=== PATIENT | female | born 1950 | race Caucasian/White ===

== ENCOUNTER 2017-12-13 20:17 | Observation (INO) | payer MEDICARE ==
[~2017-12-13] VITALS: Ht 157.5 cm; Wt 83.6 kg
[2017-12-13 11:23] VITALS: BP 123/62
--- OUTSIDE RECORDS SUMMARY | 2017-12-13 20:20 | XMS REPORT | Clinical Summary ---
Author Author [facility] Address Unknown Phone Unavailable Care Team Providers Care Property Claims Manager Name Role Phone Fozia Ramos MD PCP Allergies Active Allergy Reactions Severity Noted Date Comments Carbamazepine Other (See Comments) 09/24/2016 Codeine Other (See Comments) 09/23/2016 HALLUCINATIONS Erythromycin Hives 09/23/2016 Iodine Anaphylaxis High 09/24/2016 Sulfa (Sulfonamide Hives 09/23/2016 Antibiotics) Current Medications Prescription Sig. Disp. Refills Start End Date Status Date atorvastatin (LIPITOR) 40 Take 40 mg by mouth Active MG tablet nightly. albuterol sulfate Take 2.5 mg by Active (PROVENTIL) 2.5 mg/0.5 mL nebulization 3 (three) solution for nebulization times a day as needed. dexlansoprazole Take 60 mg by mouth Active (DEXILANT) 60 mg capsule daily. dicyclomine (BENTYL) 10 Take 10 mg by mouth 4 Active MG capsule (four) times a day before meals and nightly. escitalopram (LEXAPRO) 20 Take 20 mg by mouth Active MG tablet daily. fluticasone (FLOVENT HFA) Inhale 1 puff 2 (two) Active 110 mcg/actuation inhaler times a day as needed. insulin lispro (HumaLOG) Inject 20 Units under the Active 100 unit/mL injection skin 3 (three) times a day before meals. HYDROcodone-acetaminophen Take 1 tablet by mouth Active (NORCO) 10-325 mg per every 6 (six) hours as tablet needed for moderate pain. loratadine (CLARITIN) 10 Take 10 mg by mouth Active mg tablet daily. montelukast (SINGULAIR) Take 10 mg by mouth Active 10 mg tablet daily. traZODone (DESYREL) 100 Take 100 mg by mouth Active MG tablet nightly. Active Problems Problem Noted Date Fracture of right orbit 09/26/2016 Hx of CABG 09/26/2016 IDDM (insulin dependent diabetes mellitus) 09/26/2016 HTN (hypertension) 09/26/2016 Fall 09/24/2016 Social History Tobacco Use Types Packs/Day Years Used Date Never Smoker Alcohol Use Drinks/Week oz/Week Comments No Sex Assigned at Date Recorded Not on file Last Filed Vital Signs Not on file Plan of Treatment Health Maintenance Due Date Last Done Comments DIABETIC FOOT EXAM 1962 DIABETIC RETINAL EYE EXAM 1962 URINE MICROALBUMIN 1962 CERVICAL CANCER SCREENING 1973 BREAST CANCER SCREENING 2002 COLON CANCER SCREENING 2002 SHINGRIX VACCINE (#1) 2002 ZOSTER VACCINE 2012 PNEUMOCOCCAL 2017 POLYSACCHARIDE VACCINE AGE 65 AND OVER PNEUMOCOCCAL-13 2017 INFLUENZA VACCINE 02/10/2018 Results Not on fileafter 12/12/2016 Insurance Payer Benefit Subscriber ID Type Phone Address Plan / Group [employer] CIGNA xxxxxxxx [facility] [address] [place] [place] [address]
[2017-12-13 23:04] LABS: BASOPHILS % 0.3 % (0.0-1.0); EOSINOPHILS # (AUTO) 0.1 (0.0-0.4); EOSINOPHILS % 1.7 % (0.0-6.0); HEMATOCRIT 32.3 % (34.2-44.1); HEMOGLOBIN 10.5 g/dL (12.0-16.0); LYMPHOCYTES # (AUTO) 2.4 (1.0-3.2); LYMPHOCYTES % 30.1 % (18.0-39.1); MEAN CORPUSCULAR HGB CONC 32.5 g/dL (31-35); MEAN CORPUSCULAR VOLUME 98.5 fL (81-99); MONOCYTES % 12.6 % (4.4-11.3); NEUTROPHILS # (AUTO) 4.3 (2.1-6.9); NEUTROPHILS % 54.9 % (38.7-80.0); PLATELET COUNT 261 x10e3/uL (140-360); RED BLOOD COUNT 3.28 x10e6/uL (3.6-5.1); RED CELL DISTRIBUTION WIDTH 12.2 % (11.7-14.4)
[2017-12-13 23:16] LABS: INR 1.09; PARTIAL THROMBOPLASTIN TIME 28.8 seconds (23.8-35.5); PROTHROMBIN TIME 13.3 seconds (11.9-14.5)
--- NOTE | 2017-12-13 23:21 | Diagnostic Imaging Report ---
Examination: CT head without contrast Clinical Indication: Fall. Technique: Transaxial noncontrast images from the skull base through the vertex were obtained. Sagittal and coronal reformatted images were done. Comparison: None. Findings: Scalp: No abnormalities. Bones: Intact. No fractures. No blastic or lytic lesions. Brain sulci: Mild volume loss for patient's age. Ventricles: No hydrocephalus. Extra-axial space: No abnormalities. Parenchyma: There are mild confluent areas of low-attenuation within subcortical and periventricular white matter, nonspecific, but could represent microvascular ischemic disease. No masses, hemorrhage, or acute or chronic cortical based vascular insults. Suprasellar region: No abnormalities. Craniocervical junction: The foramen magnum is patent. No Chiari one malformation. Incidental findings: Complete opacification of the bilateral sphenoid and frontal sinuses and ethmoid air cells and partially visualized maxillary sinuses with adjacent osteitis Impression: 1. No acute intracranial finding. 2. Chronic pansinusitis. 3. Mild chronic microvascular ischemic change and mild volume loss. Signed by: Dr. Kelley Celeste M.D. on 12/13/2017 11:18 PM
--- NOTE | 2017-12-13 23:23 | Diagnostic Imaging Report ---
Examination: CT CERVICAL SPINE WITHOUT CONTRAST HISTORY:Fall. Neck pain. COMPARISON:None. TECHNIQUE: Multidetector helical axial images were obtained without contrast from the foramen magnum to T1. Coronal and sagittal reformatted images were done. Bone and soft tissue windows were evaluated. FINDINGS: Alignment:Normal alignment and lordosis. Vertebrae: Normal height and density. No acute fracture, infection or neoplasm. Disc space heights: Normal height. Caliber of spinal canal: Developmentally normal. Posterior fossa and craniocervical junction: Foramen magnum patent. No Chiari 1 malformation. Soft tissues: No abnormality. Degenerative changes: No foraminal or canal stenosis. IMPRESSION: No acute abnormalities. Signed by: Dr. Kelley Celeste M.D. on 12/13/2017 11:20 PM
[2017-12-13 23:25] LABS: ALBUMIN 3.4 g/dL (3.5-5.0); ALBUMIN/GLOBULIN RATIO 0.8 (0.8-2.0); ANION GAP 13.7 mmol/L (8-16); CALCIUM 9.4 mg/dL (8.4-10.2); CREATININE, SERUM 1.14 mg/dL (0.57-1.11); MAGNESIUM 1.9 MG/DL (1.3-2.1); POTASSIUM 4.7 mmol/L (3.5-5.1)
--- NOTE | 2017-12-13 23:38 | Diagnostic Imaging Report ---
CHEST SINGLE (PORTABLE), 12/13/2017 10:07 PM Technique: CHEST SINGLE (PORTABLE) Comparison: None available. Clinical history: \S\FALL \[id number] \S\2314 Findings: See Impression Impression: 1. Borderline heart size status post median sternotomy and CABG. 2. No edema or consolidation. No pleural effusion or pneumothorax. 3. Likely chronic fracture deformity of the left proximal humerus. Correlate with history and dedicated humerus radiographs, as indicated. Signed by: Dr Yuliana Goodson MD on 12/13/2017 11:34 PM
--- NOTE | 2017-12-13 23:39 | Diagnostic Imaging Report ---
SACRUM COCCYX Comparison: None Clinical history: Fall Findings: Sacrum is partially obscured by overlying bowel gas. No acute displaced fracture is identified. Impression: No acute bony abnormality Signed by: Dr Yuliana Goodson MD on 12/13/2017 11:35 PM
--- NOTE | 2017-12-13 23:49 | Diagnostic Imaging Report ---
EXAM: CT ABDOMEN/PELVIS WO DATE: 12/13/2017 10:07 PM INDICATION: \S\FALL, GROSS HEMATURIA, TRAUMA PROTOCOL \[id number] \S\[id number] COMPARISON: None TECHNIQUE: The abdomen and pelvis were scanned using a multidetector helical scanner. Coronal and sagittal reformations were obtained. Routine protocol performed. IV Contrast: 0 ml Isovue 300/370 FINDINGS: Lack of IV contrast decreases sensitivity in evaluating for traumatic injury and assessment of abdominal and pelvic organs. LOWER THORAX: Mild linear bibasilar atelectasis/scarring. LIVER: No perihepatic hematoma. GALLBLADDER: Surgically absent SPLEEN: No perisplenic hematoma PANCREAS: No hematoma ADRENALS: No nodules KIDNEYS: 8 mm calcification in the left superior kidney associated with a cyst may reflect layering milk of calcium. 3 mm left interpolar renal calculus. Bilateral vascular calcifications. GI TRACT: Normal appendix. Scattered diverticula. There is focal nonspecific inflammation of the perisigmoid fat (coronal image 37, axial image 67); focal underlying wall thickening versus underdistention. VESSELS: Diffuse vascular calcifications. PERITONEUM/RETROPERITONEUM: No free air or fluid LYMPH NODES: No lymphadenopathy REPRODUCTIVE ORGANS/BLADDER: Hysterectomy. Unremarkable bladder. SOFT TISSUES: Small fat-containing umbilical hernia. BONES: Multilevel degenerative changes. No acute fractures. IMPRESSION: Lack of IV contrast decreases sensitivity in evaluating for traumatic injury 1. Focal perisigmoid inflammatory changes, which could reflect sequelae of prior or recent diverticulitis. Recommend follow-up colonoscopy to exclude neoplasm. 2. Otherwise no acute abnormality. 3. Nonobstructing left nephrolithiasis. Signed by: Dr Yuliana Goodson MD on 12/13/2017 11:45 PM
[2017-12-14] VITALS (9 sets, daily range): BP systolic 91–123; BP diastolic 44–62
[2017-12-14 00:31] LABS: BILIRUBIN,URINE NEGATIVE (NEGATIVE); CLARITY,URINE CLEAR (CLEAR); COLOR,URINE STRAW (YELLOW); KETONES,URINE NEGATIVE (NEGATIVE); LEUKOCYTE ESTERASE ,URINE 1+ (NEGATIVE); NITRITE,URINE POSITIVE (NEGATIVE); PROTEIN,URINE DIPSTICK NEGATIVE (NEGATIVE); URINE UROBILINOGEN 0.2 mg/dL (0.2 - 1)
[2017-12-14 00:33] LABS: BACTERIA,URINE MANY /HPF; EPITHELIAL CELLS,URINE FEW /LPF
[2017-12-14] MEDS ORDERED: DEXTROSE 50% SYRINGE 50 ML IV PRN (01:00)
[2017-12-14] MEDS ORDERED: ONDANSETRON HCL 4 MG ORAL DISINTEGRATING TAB PO PRN (01:00)
--- OUTSIDE RECORDS SUMMARY | 2017-12-14 01:04 | XMS REPORT | Clinical Summary ---
Author Author [facility] Organization [facility] Address Unknown Phone Unavailable Care Team Providers Care Aerial Advertiser Name Role Phone Fozia Ramos MD PCP [...] INFLUENZA VACCINE 02/10/2018 Results Not on fileafter 12/13/2016 Insurance Payer Benefit Subscriber ID Type Phone Address Plan / Group [employer] C[employer] x[employer]xxx [facility] [address] [place] [address]
--- OUTSIDE RECORDS SUMMARY | 2017-12-14 01:04 | XMS REPORT ---
Author Author [facility] Address Unknown Phone Unavailable Care Team Providers Care Consultant Education Name Role Phone RAJENDRA BEAULIEU Unavailable Unavailable Problems This patient has no known problems. Allergies, Adverse Reactions, Alerts This patient has no known allergies or adverse reactions. Medications This patient has no known medications. Results Test Description Test Time Test Comments Text Results Atomic Results Result Comments CT BRAIN WO [place] [address] Patient Name: KUSUM COBB MR #: [id number] : 1950 Age/Sex: 67/F Req #: [id number] Adm Physician: Ordered by: RAJENDRA BEAULIEU MD Report #: [id number] Location: ER Room/Bed: Procedure: [id number] CT/CT BRAIN WO Exam Date: Exam Time: REPORT STATUS: Signed Examination: CT head without contrast Clinical Indication: Fall. Technique: Transaxial noncontrast images from the skull base through the vertex were obtained. Sagittal and coronal reformatted images were done. Comparison: None. Findings: Scalp: No abnormalities. Bones: Intact. No fractures. No blastic or lytic lesions. Brain sulci: Mild volume loss for patient's age. Ventricles: No hydrocephalus. Extra- axial space: No abnormalities. Parenchyma: There are mild confluent areas of low-attenuation within subcortical and periventricular white matter, nonspecific, but could represent microvascular ischemic disease. No masses, hemorrhage, or acute or chronic cortical based vascular insults. Suprasellar region: No abnormalities. Craniocervical junction: The foramen magnum is patent. No Chiari one malformation. Incidental findings: Complete opacification of the bilateral sphenoid and frontal sinuses and ethmoid air cells and partially visualized maxillary sinuses with adjacent osteitis Impression: 1. No acute intracranial finding. 2. Chronic pansinusitis. 3. Mild chronic microvascular ischemic change and mild volume loss. Signed by: Dr. Kelley Celeste M.D. on 12/13/2017 11:18 PM Dictated By: KELLEY GOODEN MD 17 Transcribed By: MAXX on 2317 COPY TO: RAJENDRA BEAULIEU MD CT CERVICAL SPINE WO [place] [address] Patient Name: KUSUM COBB MR #: [id number] : 1950 Age/Sex: 67/F Req # : [id number] Adm Physician: Ordered by: RAJENDRA BEAULIEU MD Report #: [id number] Location: ER Room/Bed: Procedure: [id number] CT/CT CERVICAL SPINE WO Exam Date: Exam Time: REPORT STATUS: Signed Examination: CT CERVICAL SPINE WITHOUT CONTRAST HISTORY:Fall. Neck pain. COMPARISON:None. TECHNIQUE: Multidetector helical axial images were obtained without contrast from the foramen magnum to T1. Coronal and sagittal reformatted images were done. Bone and soft tissue windows were evaluated. FINDINGS: Alignment:Normal alignment and lordosis. Vertebrae: Normal height and density. No acute fracture, infection or neoplasm. Disc space heights: Normal height. Caliber of spinal canal: Developmentally normal. Posterior fossa and craniocervical junction: Foramen magnum patent. No Chiari 1 malformation. Soft tissues: No abnormality. Degenerative changes: No foraminal or canal stenosis. IMPRESSION: No acute abnormalities. Signed by: Dr. Kelley Celeste M.D. on 12/13/2017 11:20 PM Dictated By: KELLEY GOODEN MD 19 Transcribed By: MAXX on 12/13/172319 COPY TO: RAJENDRA BEAULIEU MD CHEST SINGLE (PORTABLE) [place] [address] Patient Name: KUSUM COBB MR #: [id number] : 1950 Age/Sex: 67/F Req #: [id number] Adm Physician: Ordered by: RAJENDRA BEAULIEU MD Report #: [id number] Location: ER Room/Bed: Procedure: [id number] DX/CHEST SINGLE (PORTABLE) Exam Date: 12/13/17 Exam Time: 2314 REPORT STATUS: Signed CHEST SINGLE ( PORTABLE), 12/13/2017 10:07 PM Technique: CHEST SINGLE (PORTABLE) Comparison: None available. Clinical history: S FALL S 20171213 Findings: See Impression Impression: 1. Borderline heart size status post median sternotomy and CABG. 2. No edema or consolidation. No pleural effusion or pneumothorax. 3. Likely chronic fracture deformity of the left proximal humerus. Correlate with history and dedicated humerus radiographs, as indicated. Signed by: Dr Olamide Goodson MD on 12/13/2017 11:34 PM Dictated By: OLAMIDE GOODSON MD 33 Transcribed By: MAXX on 12/13/172333 COPY TO: RAJENDRA BEAULIEU MD SACRUM COCCYX [place] [address] Patient Name: KUSUM COBB MR #: [id number] : 1950 Age/Sex: 67/F Req #: [id number] Adm Physician: Ordered by: RAJENDRA BEAULIEU MD Report #: [id number] Location: ER Room/Bed: Procedure: [id number] DX/SACRUM COCCYX Exam Date: 12/13/17 Exam Time: 2315 REPORT STATUS: Signed SACRUM COCCYX Comparison: None Clinical history: Fall Findings: Sacrum is partially obscured by overlying bowel gas. No acute displaced fracture is identified. Impression: No acute bony abnormality Signed by: Dr Olamide Goodson MD on 12/13/2017 11:35 PM Dictated By: OLAMIDE GOODSON MD 34 Transcribed By: MAXX on 12/13 COPY TO: RAJENDRA BEAULIEU MD CT ABDOMEN/PELVIS WO [place] [address] Patient Name: KUSUM COBB MR #: [id number] : 1950 Age/Sex: 67/F Req # : [id number] Adm Physician: Ordered by: RAJENDRA BEAULIEU MD Report #: [id number] Location: ER Room/Bed: Procedure: [id number] CT/CT ABDOMEN/PELVIS WO Exam Date: 12/13/17 Exam Time: 2250 REPORT STATUS: Signed EXAM: CT ABDOMEN/PELVIS WO DATE: 12/13 10:07 PM INDICATION: S FALL, GROSS HEMATURIA, TRAUMA PROTOCOL S [id number] S 2250 COMPARISON: None TECHNIQUE: The abdomen and pelvis were scanned using a multidetector helical scanner. Coronal and sagittal reformations were obtained. Routine protocol performed. IV Contrast: 0 ml Isovue 300/370 FINDINGS: Lack of IV contrast decreases sensitivity in evaluating for traumatic injury and assessment of abdominal and pelvic organs. LOWER THORAX: Mild linear bibasilar atelectasis/scarring. LIVER: No perihepatic hematoma. GALLBLADDER: Surgically absent SPLEEN: No perisplenic hematoma PANCREAS: No hematoma ADRENALS: No nodules KIDNEYS : 8 mm calcification in the left superior kidney associated with a cyst may reflect layering milk of calcium. 3 mm left interpolar renal calculus. Bilateral vascular calcifications. GI TRACT: Normal appendix. Scattered diverticula. There is focal nonspecific inflammation of the perisigmoid fat ( coronal image 37, axial image 67); focal underlying wall thickening versus underdistention. VESSELS: Diffuse vascular calcifications. PERITONEUM/ RETROPERITONEUM: No free air or fluid LYMPH NODES: No lymphadenopathy REPRODUCTIVE ORGANS/BLADDER: Hysterectomy. Unremarkable bladder. SOFT TISSUES: Small fat-containing umbilical hernia. BONES: Multilevel degenerative changes. No acute fractures. IMPRESSION: Lack of IV contrast decreases sensitivity in evaluating for traumatic injury 1. Focal perisigmoid inflammatory changes, which could reflect sequelae of prior or recent diverticulitis. Recommend follow-up colonoscopy to exclude neoplasm. 2. Otherwise no acute abnormality. 3. Nonobstructing left nephrolithiasis. Signed by: Dr Olamide Goodson MD on 12/13/2017 11:45 PM Dictated By: OLAMIDE GOODSON MD [id number] Transcribed By: MAXX on 12/13/17 8586 COPY TO: RAJENDRA BEAULIEU MD
[2017-12-14] MEDS: FAMOTIDINE 20 MG/2 ML VIAL IV SCH ×2 (01:15→12:52)
[2017-12-14] MEDS: CEFTRIAXONE SOD 1 GM VIAL IV SCH ×2 (01:15→12:53)
[2017-12-14] MEDS: MORPHINE SULFATE 2 MG/ML SYR IV PRN ×2 (02:39→22:55)
[2017-12-14] MEDS ORDERED: LEVOTHYROXINE50 MCG PO (03:34)
[2017-12-14] MEDS ORDERED: RANEXA500 MG PO (03:34)
[2017-12-14] MEDS ORDERED: POTASSIUM CHLO10 ME1 PO (03:34)
[2017-12-14] MEDS ORDERED: OMEPRAZOLE40 MG PO (03:34)
[2017-12-14] MEDS ORDERED: FUROSEMIDE40 MG PO (03:39)
[2017-12-14] MEDS ORDERED: MONTELUKAST SOD10 MG PO (03:39)
[2017-12-14] MEDS ORDERED: PREDNISOLONE ACE5 ML OS (03:39)
[2017-12-14] MEDS ORDERED: LEXAPRO10 MG PO (03:39)
[2017-12-14] MEDS ORDERED: ATORVASTATIN CA20 MG PO (03:39)
[2017-12-14] MEDS ORDERED: ASPIRIN81 MG PO (03:39)
[2017-12-14] MEDS ORDERED: HUMALOG100 UNIT/1 SC (03:47)
[2017-12-14] MEDS: INSULIN REGULAR, HUMAN 100 UNIT/1 ML 3ML VIAL SQ SCH ×4 (07:30→21:00)
--- NOTE | 2017-12-14 07:47 | History and Physical ---
ADDENDUM ASSESSMENT AND PLAN 1. Diabetes mellitus, type 2: Will obtain hemoglobin A1c and lipid panel. 2. Hyperlipidemia: Continue statin. 3. Hypothyroidism: Continue Synthroid. 4. Chronic angina: The patient takes Ranexa at home. Will resume. Job#: [id number] [place]
--- NOTE | 2017-12-14 07:52 | History and Physical ---
PRIMARY CARE PHYSICIAN: Tim Brian DO PROMOTIONS ASSISTANT SALES MARKETING: Anant Seals MD CHIEF COMPLAINT: Recurrent falls, now with blood loss. HISTORY OF PRESENT ILLNESS: This is a 67-year-old woman with a history of recurrent falls. She has been managed by her primary care doctor, having vascular workup as an outpatient. Now, the patient had another fall. She went to the bathroom and had gross blood in the toilet. Unclear whether it was vaginal versus GI-related. She came to the hospital. The patient was on Plavix. A Dong was inserted, and the states there was no blood when the Dong was inserted. The patient was admitted for further evaluation and management. She denies abdominal pain. She denies any chest pain or shortness of breath. PAST MEDICAL HISTORY 1. Hypertension. 2. Hyperlipidemia. 3. Diabetes mellitus. 4. Hypothyroidism. 5. Coronary artery disease, status post coronary artery bypass grafting. The patient is status post stent placement in 2004. PAST SURGICAL HISTORY 1. Appendectomy. 2. Coronary artery bypass grafting. 3. Coronary stent placement in 2004. 4. Carpal tunnel release surgery. 5. Cholecystectomy. 6. Hysterectomy. ALLERGIES: PER ELECTRONIC MEDICAL RECORD. FAMILY AND SOCIAL HISTORY: The patient is . She has 3 children. No alcohol, illicits or cigarettes. MEDICATIONS: Per electronic medical record. REVIEW OF SYSTEMS: Denies any dizziness or chest pain. PHYSICAL EXAMINATION VITAL SIGNS: Reviewed. GENERAL: A tired-appearing woman resting in bed. HEENT: Anicteric. Pupils are responsive to light. No oral lesions. CARDIOVASCULAR: Normal S1 and S2. LUNGS: Moderate breath sounds. ABDOMEN: Soft, nontender, nondistended. EXTREMITIES: No edema or calf tenderness. NEUROLOGIC: Alert, oriented times 3, moving all extremities. : She has a Dong in place with yellow urine. SKIN: Dry. PSYCHIATRIC: Flat affect. LABS: Reviewed. MEDICATIONS: Reviewed. ASSESSMENT: This is a 67-year-old woman. 1. Recurrent falls. 2. Coronary artery disease with history of bypass and stent. 3. Normocytic anemia. 4. Acute kidney injury. 5. Urinary tract infection. 6. Chronic fracture of the left proximal humerus. 7. Diverticulosis with possible focal perisigmoid inflammatory changes. PLAN 1. Physical therapy consultation. 2. Follow up blood counts. There is no active bleeding. Will avoid Plavix at this time. Furthermore, the patient may not need Plavix as the stents were back in 2004. 3. Follow up urologic consultation. Dong is in place. 4. Continue ceftriaxone for urinary tract infection. 5. Start rehydration for acute kidney injury. 6. Overweight state. BMI 28.5. Glucose is 81. We will monitor. 7. Prophylaxis: Use SCD and continue Pepcid. Job#: [id number]
[2017-12-14 08:28] LABS: CHOL/HDL RATIO 2.1 (3.0-3.6)
[2017-12-14] MEDS ORDERED: LEVOTHYROXINE SODIUM 50 MCG TAB PO SCH (09:00)
[2017-12-14] MEDS ORDERED: NON-FORMULARY MEDICATION (Insulin Lispro (Humalog) 15 UNITS) SC SCH (09:00)
[2017-12-14] MEDS: INSULIN LISPRO 100 UNIT/1 ML 3ML VIAL SQ SCH ×2 (09:45→18:41)
[2017-12-14] MEDS: ESCITALOPRAM OXALATE 10 MG TAB PO SCH (09:45)
[2017-12-14] MEDS: RANOLAZINE 500 MG TABSR PO SCH ×2 (09:45→18:20)
--- NOTE | 2017-12-14 10:22 | Diagnostic Imaging Report ---
PROCEDURE:ABDOMEN-1VIEW (KUB) TECHNIQUE:Supine AP abdomen. INDICATION:Calculus of kidney COMPARISON:[facility], CT, CT ABDOMEN/PELVIS WO, 12/13/2017, 22:59. FINDINGS: Multiple calcifications at the left superior pole are not conspicuous due to motion artifact. Grossly normal bowel gas pattern. CONCLUSION: Left superior pole nephrolithiasis seen on CT from December 13, 2017 is not conspicuous due to motion artifact. Dictated by: Rogerio Thornton M.D. on 12/14/2017 at 10:25 Electronically approved by: Rogerio Thornton M.D. on 12/14/2017 at 10:25
[2017-12-14] MEDS: SODIUM CHLORIDE 0.9% 1000ML 1,000 ML IV SCH ×2 (15:46→21:15)
[2017-12-14] MEDS: ATORVASTATIN 40 MG TAB PO SCH (21:00)
[2017-12-14] MEDS ORDERED: ATORVASTATIN 20 MG TAB PO SCH (21:00)
[2017-12-15] MEDS: FAMOTIDINE 20 MG/2 ML VIAL IV SCH ×2 (00:31→13:00)
[2017-12-15] MEDS: CEFTRIAXONE SOD 1 GM VIAL IV SCH ×2 (00:31→13:00)
[2017-12-15] MEDS: SODIUM CHLORIDE 0.9% 1000ML 1,000 ML IV SCH ×2 (01:41→13:30)
[2017-12-15 04:00] VITALS: BP 90/51
[2017-12-15] MEDS: LEVOTHYROXINE SODIUM 50 MCG TAB PO SCH (05:19)
[2017-12-15 07:12] LABS: BASOPHILS % 0.2 % (0.0-1.0); EOSINOPHILS # (AUTO) 0.1 (0.0-0.4); EOSINOPHILS % 2.5 % (0.0-6.0); HEMATOCRIT 28.5 % (34.2-44.1); HEMOGLOBIN 9.3 g/dL (12.0-16.0); LYMPHOCYTES % 42.9 % (18.0-39.1); MEAN CORPUSCULAR HEMOGLOBIN 32.3 pg (28-32); MEAN CORPUSCULAR HGB CONC 32.6 g/dL (31-35); MONOCYTES # (AUTO) 0.7 (0.2-0.8); MONOCYTES % 14.3 % (4.4-11.3); NEUTROPHILS # (AUTO) 1.9 (2.1-6.9); NEUTROPHILS % 39.7 % (38.7-80.0); PLATELET COUNT 217 x10e3/uL (140-360); RED BLOOD COUNT 2.88 x10e6/uL (3.6-5.1); RED CELL DISTRIBUTION WIDTH 12.2 % (11.7-14.4)
[2017-12-15 07:25] LABS: ALANINE AMINOTRANSFERASE 12 IU/L (0-55); ALBUMIN 2.7 g/dL (3.5-5.0); ALBUMIN/GLOBULIN RATIO 0.8 (0.8-2.0); ALKALINE PHOSPHATASE 87 IU/L (40-150); ANION GAP 8.3 mmol/L (8-16); BLOOD UREA NITROGEN 15 mg/dL (7-26); BUN/CREATININE RATIO 17 (6-25); CARBON DIOXIDE 31 mmol/L (22-29); CHLORIDE 107 mmol/L (98-107); CREATININE, SERUM 0.88 mg/dL (0.57-1.11); EST GLOMERULAR FILTRATION RATE > 60 ML/MIN (60-); GLUCOSE 118 mg/dL (74-118); POTASSIUM 4.3 mmol/L (3.5-5.1); SODIUM 142 mmol/L (136-145)
[2017-12-15] MEDS: INSULIN REGULAR, HUMAN 100 UNIT/1 ML 3ML VIAL SQ SCH ×4 (07:30→21:30)
[2017-12-15 08:00] VITALS: BP 101/54
[2017-12-15] MEDS: INSULIN LISPRO 100 UNIT/1 ML 3ML VIAL SQ SCH ×2 (08:53→17:00)
[2017-12-15] MEDS: RANOLAZINE 500 MG TABSR PO SCH ×2 (09:00→17:00)
[2017-12-15] MEDS: ESCITALOPRAM OXALATE 10 MG TAB PO SCH (10:51)
--- NOTE | 2017-12-15 11:58 | Diagnostic Imaging Report ---
PROCEDURE: A single AP view of the chest. COMPARISON: [facility], DX, CHEST SINGLE (PORTABLE), 12/13/2017, 23:19. INDICATIONS: PICC LINE PLACEMENT FINDINGS: See impression. IMPRESSION: 1. interval placement of right-sided PICC line, with distal tip projecting in the proximal SVC. 2. Otherwise, no significant interval change. Luis Monroe M.D. Dictated by: Luis Monroe M.D. on 12/15/2017 at 12:01 Electronically approved by: Luis Monroe M.D. on 12/15/2017 at 12:01
[2017-12-15 12:00] VITALS: BP 93/44
[2017-12-15 16:00] VITALS: BP 109/52
[2017-12-15 20:00] VITALS: BP 110/53
[2017-12-15] MEDS ORDERED: PREDNISOLONE ACETATE 1% OPTH SUSP 5 ML BTL OP SCH (21:00)
[2017-12-15] MEDS: ATORVASTATIN 40 MG TAB PO SCH (22:01)
[2017-12-16] VITALS: BP 92/47
[2017-12-16] MEDS: CEFTRIAXONE SOD 1 GM VIAL IV SCH ×2 (01:15→12:29)
[2017-12-16] MEDS: SODIUM CHLORIDE 0.9% 1000ML 1,000 ML IV SCH ×2 (01:15→08:50)
[2017-12-16] MEDS: FAMOTIDINE 20 MG/2 ML VIAL IV SCH ×2 (01:15→12:29)
[2017-12-16 04:00] VITALS: BP 108/54
[2017-12-16] MEDS: LEVOTHYROXINE SODIUM 50 MCG TAB PO SCH (05:47)
[2017-12-16 08:17] VITALS: BP 92/48
[2017-12-16] MEDS: RANOLAZINE 500 MG TABSR PO SCH (08:36)
[2017-12-16] MEDS: ESCITALOPRAM OXALATE 10 MG TAB PO SCH (08:36)
[2017-12-16] MEDS: INSULIN LISPRO 100 UNIT/1 ML 3ML VIAL SQ SCH (08:36)
[2017-12-16] MEDS: INSULIN REGULAR, HUMAN 100 UNIT/1 ML 3ML VIAL SQ SCH ×2 (08:36→11:30)
[2017-12-16 09:20] VITALS: BP 92/48
[2017-12-16 12:50] VITALS: BP 127/61
--- NOTE | 2017-12-18 08:19 | Progress Note ---
DATE: December 15, 2017 TIME: 7:40 a.m. OVERNIGHT: No events. REVIEW OF SYSTEMS: Denies any dizziness. VITAL SIGNS: Reviewed. PHYSICAL EXAMINATION GENERAL: A tired-appearing woman resting in bed. HEENT: Anicteric. CARDIOVASCULAR: Normal S1 and S2. LUNGS: Moderate breath sounds. ABDOMEN: Soft, nontender, nondistended. EXTREMITIES: No edema. SKIN: Dry. PSYCHIATRIC: Flat affect. LABS: Reviewed. MEDICATIONS: Reviewed. ASSESSMENT: This is a 67-year-old woman. 1. Recurrent falls. 2. Coronary artery disease with history of bypass and stent. 3. Normocytic anemia. 4. Acute kidney injury. 5. Urinary tract infection. 6. Chronic fracture of the left proximal humerus. 7. Diverticulosis with possible focal perisigmoid inflammatory changes. PLAN 1. Continue physical therapy. 2. Follow up blood counts. 3. Follow up urologic consultation. 4. Rehydrate the patient. Job#: [id number]
--- NOTE | 2017-12-18 08:24 | Discharge Summary ---
PRINCIPAL DIAGNOSES 1. Diabetes mellitus, type 2. 2. Chronic angina. 3. Recurrent falls. 4. Coronary artery disease with history of bypass. 5. Acute kidney injury. 6. Urinary tract infection. 7. Chronic fracture of the left proximal humerus. 8. Diverticulosis. SECONDARY DIAGNOSIS: Recurrent falls. CHIEF COMPLAINT: Fall with blood loss. HISTORY OF PRESENT ILLNESS: This is a 67-year-old woman with fall. Please refer to the H and P for further details. HOSPITAL COURSE: The patient was found to have a fall. There was no blood visible on Dong placement or in the stool. The patient had acute kidney injury treated with IV fluids and normocytic anemia remained stable. Urinary tract infection was treated with antibiotics. Chronic fracture of the left proximal humerus and had diverticulosis. The patient did well and treated with IV ceftriaxone, and subsequently transitioned out of the hospital with antibiotics and follow with urology outpatient. CONDITION ON DISCHARGE: Stable and improving. DISCHARGE LOCATION: Home. EFRA CAMACHO MD Job#: [id number] [place]
== END 2017-12-16 13:20 ==
LOC: ER 20:17 → MED/SURG 12-14 01:01
PROVIDERS: ADMIT Internal Medicine; ATTEND Internal Medicine
DX: N34.1 Nonspecific urethritis (principal); W01.0XXA Fall on same level from slipping, tripping and stumbling without subsequent striking against object, initial encounter; Y93.89 Activity, other specified; Y92.019 Unspecified place in single-family (private) house as the place of occurrence of the external cause; Z79.01 Long term (current) use of anticoagulants; I25.2 Old myocardial infarction; I10 Essential (primary) hypertension; E78.5 Hyperlipidemia, unspecified; E11.42 Type 2 diabetes mellitus with diabetic polyneuropathy; Z91.81 History of falling; Z95.1 Presence of aortocoronary bypass graft; Z95.5 Presence of coronary angioplasty implant and graft; D64.9 Anemia, unspecified; N17.9 Acute kidney failure, unspecified; M84.422D Pathological fracture, left humerus, subsequent encounter for fracture with routine healing; K57.90 Diverticulosis of intestine, part unspecified, without perforation or abscess without bleeding; E66.3 Overweight; Z68.28 Body mass index [BMI] 28.0-28.9, adult; R31.0 Gross hematuria; N95.2 Postmenopausal atrophic vaginitis; R32 Unspecified urinary incontinence; N28.1 Cyst of kidney, acquired; R31.29 Other microscopic hematuria; B96.1 Klebsiella pneumoniae [K. pneumoniae] as the cause of diseases classified elsewhere; B95.4 Other streptococcus as the cause of diseases classified elsewhere
CPT/HCPCS: 36415 ×3; 36569 ×2; 51700; 70450; 71045 ×2; 72125; 72220; 74018; 74176; 80053 ×2; 80061; 81001; 82948 ×3; 83036; 83735; 85025 ×2; 85610; 85730; 86850; 86900; 87086 ×2; 87186; 97110; 97116 ×2; 97139; 97161; 99284; G0378 ×3; J0696 ×3; J2270; J7030 ×2

== ENCOUNTER → 2018-07-05 | Day surgery (SDC) | payer MEDICARE ==
[~2018-07-05] MED LIST: ASPIRIN81 MG PO; ATORVASTATIN CA20 MG PO; BELLADONNA/OPIUM 30 MG SUPP RC ONE; CEFTRIAXONE SOD 1 GM/NS 50 ML 50 ML IV ONE; DESFLURANE 240 ML BTL INH ONE; FUROSEMIDE40 MG PO; GENTAMICIN 80MG/NS 100 ML 100 ML IV ONE; HUMALOG100 UNIT/1 SC; IOPAMIDOL 610MG/1ML 300 MG/ML VIAL IV ONE; LEVOTHYROXINE50 MCG PO; LEXAPRO10 MG PO; LIDOCAINE HCL 2% LOCAL INJ 5 ML SDV VIAL INJ ONE; LORATADINE10 MG PO; MIDAZOLAM HCL 2 MG/2 ML VIAL ONE; MONTELUKAST SOD10 MG PO; MORPHINE SULFATE INJ 4 MG/ML INJ 1ML ONE; MYRBETRIQ50 MG PO; OMEPRAZOLE40 MG PO; ONDANSETRON HCL INJ 2MG/ML 2ML 2 MG/ML VIAL ONE; PLAVIX75 MG PO; POTASSIUM CHLO10 ME1 PO; PREDNISOLONE ACE5 ML OS; PROPOFOL IV EMULSION 10 MG/ML 20 ML VIAL ONE; RANEXA500 MG PO; RANITIDINE HCL150 MG PO; metoprolol PO
[2018-07-05 09:26] LABS: BASOPHILS % 0.4 % (0.0-1.0); EOSINOPHILS # (AUTO) 0.2 (0.0-0.4); HEMATOCRIT 36.5 % (34.2-44.1); HEMOGLOBIN 11.9 g/dL (12.0-16.0); LYMPHOCYTES # (AUTO) 2.5 (1.0-3.2); LYMPHOCYTES % 31.7 % (18.0-39.1); MEAN CORPUSCULAR HEMOGLOBIN 32.7 pg (28-32); MEAN CORPUSCULAR HGB CONC 32.6 g/dL (31-35); MEAN CORPUSCULAR VOLUME 100.3 fL (81-99); MONOCYTES # (AUTO) 0.7 (0.2-0.8); MONOCYTES % 8.7 % (4.4-11.3); NEUTROPHILS # (AUTO) 4.3 (2.1-6.9); NEUTROPHILS % 55.8 % (38.7-80.0); PLATELET COUNT 254 x10e3/uL (140-360); RED BLOOD COUNT 3.64 x10e6/uL (3.6-5.1); RED CELL DISTRIBUTION WIDTH 12.4 % (11.7-14.4)
[2018-07-05 09:51] LABS: ANION GAP 14.5 mmol/L (8-16); CALCIUM 9.2 mg/dL (8.4-10.2); CREATININE, SERUM 1.15 mg/dL (0.57-1.11); POTASSIUM 4.5 mmol/L (3.5-5.1)
--- NOTE | 2018-07-05 09:55 | Diagnostic Imaging Report ---
EXAMINATION: ABDOMEN-1VIEW (KUB) COMPARISON: CT Abdomen/Pelvis 12/13/17. FINDINGS: Upper abdomen is not included in the field of view. Bowel gas partially obscures visualization of the kidneys. There is a 3 mm and a 7 mm calcification overlying the left upper kidney. No evidence of calcification overlying the expected location of the ureters or bladder. Non-obstructive bowel gas pattern. Clips project over the right upper quadrant. Vascular calcifications and phleboliths project over the pelvis. No acute bony findings. IMPRESSION: Left renal stones measuring 3 mm and 7 mm. No evidence of calcification overlying the expected location of the ureters or bladder. Signed by: Dr. Jermaine Anne MD on 07/05/2018 9:52 AM
[2018-07-05 15:00] VITALS: BP 114/67
--- NOTE | 2018-09-06 06:52 | Operative Report ---
DATE OF PROCEDURE: 09/05/2018 SURGEON: Jose C Mar MD PREOPERATIVE DIAGNOSES: 1. Left nephrolithiasis. 2. Urinary tract infections. 3. Mixed-type urine incontinence. POSTOPERATIVE DIAGNOSES: 1. Left nephrolithiasis. 2. Urinary tract infections. 3. Mixed-type urine incontinence. 4. Urethral caruncle. 5. Atrophic vaginitis. OPERATION PERFORMED: Note that these are staged procedures as part of multistage multi-step process in managing the patient's urolithiasis. 1. Left-sided extracorporeal shock wave lithotripsy (separate staged procedure for the nephrolithiasis). 2. Cystourethroscopy with bilateral ureteral catheterization and retrograde ureteropyelography (separate procedure performed for the urinary tract infections). 3. Interpretation of retrograde ureteropyelography. 4. Supervision of fluoroscopy, no radiologist present. 5. Pelvic examination under anesthesia. ANESTHESIA: General. COMPLICATIONS: None. CLINICAL SUMMARY: Teresa Black is a 67-year-old woman with the above preoperative diagnoses. She is brought for the above procedures. She is aware of the risks of bleeding, infection, injury to adjacent structures, and need for additional procedures and elected to proceed. PROCEDURE IN DETAIL: Informed consent was verified. Teresa Black was appropriately identified, taken to the operating room, and placed on the lithotripsy table in supine position. Anesthesia was uneventfully begun. The patient's 5 mm left mid- calyceal stone was localized with biplanar fluoroscopy. A total of 3000 shocks were delivered with fragmentation noted. The patient was then carefully and gently repositioned in dorsal lithotomy position with all pressure points well padded, and her genitalia were prepared and draped in the usual sterile fashion. A 22.5-Divehi cystoscope sheath with the obturator in place was atraumatically inserted into the patient's urethra and bladder was drained. Panendoscopy of the urinary bladder revealed no suspicious mucosal lesions. No tumors, no stones, and no diverticula. Normally positioned and configurative ureteral orifices were identified. Urethral catheter was used to cannulate each ureter and retrograde ureteropyelograms were performed. Interpretation of Retrograde Ureteropyelography: Contrast was instilled in a retrograde fashion bilaterally. On the right-hand side, there were no tumors, no stones, no diverticula, and no suspicious mucosal lesions were noted. On the left-hand side, there was a calyceal diverticulum off the lateral portion of the cephalad most calyx. This contained multiple filling defects corresponding with fragmented stones. Nevertheless, there was no hydronephrosis. Unobstructed drainage was observed fluoroscopically. The patient's bladder was drained. The cystoscope was withdrawn. Pelvic exam: vaginitis with urethral caruncle. No abnormal palpable pelvic masses could be appreciated and there were no obvious mucosal lesions. The patient was then uneventfully reversed from anesthesia and taken to the recovery room in stable condition. Exclusive postoperative instructions were given. We will follow the patient up in the office. Long- term followup will be performed for the left upper pole lateral calyceal diverticulum that contains multiple stones. It should be noted that there is a presumably vascular calcification that is medial. This was not in the collecting system. Jose C Mar MD [place]/MODL /[id number] cc: Tim Brian DO [email or web address]
== END | disposition home or self-care (01) ==
LOC: OR 08:22
PROVIDERS: ATTEND Urology
DX: N20.0 Calculus of kidney (principal); N28.89 Other specified disorders of kidney and ureter; N39.0 Urinary tract infection, site not specified; N39.46 Mixed incontinence; N36.2 Urethral caruncle; N95.2 Postmenopausal atrophic vaginitis; I25.810 Atherosclerosis of coronary artery bypass graft(s) without angina pectoris; I25.2 Old myocardial infarction; I10 Essential (primary) hypertension; E11.9 Type 2 diabetes mellitus without complications; E03.9 Hypothyroidism, unspecified; K25.9 Gastric ulcer, unspecified as acute or chronic, without hemorrhage or perforation; K58.9 Irritable bowel syndrome, unspecified; R42 Dizziness and giddiness; M19.90 Unspecified osteoarthritis, unspecified site; F32.9 Major depressive disorder, single episode, unspecified; F41.9 Anxiety disorder, unspecified; J45.909 Unspecified asthma, uncomplicated; Z88.2 Allergy status to sulfonamides; Z88.6 Allergy status to analgesic agent; Z91.041 Radiographic dye allergy status; Z79.4 Long term (current) use of insulin; Z79.82 Long term (current) use of aspirin; Z79.02 Long term (current) use of antithrombotics/antiplatelets; Z95.1 Presence of aortocoronary bypass graft; Z95.5 Presence of coronary angioplasty implant and graft
CPT/HCPCS: 36415; 50590; 74018; 80048; 82948; 84550; 85025; 87086; 87186; 93005; C1758; J0696; J1580; J2001; J2250; J2270; J2405; J2704; Q9967

== ENCOUNTER 2018-07-22 18:48 | Emergency (ER) | payer MEDICARE ==
[~2018-07-22] VITALS: Ht 157.5 cm; Wt 69.9 kg
[~2018-07-22 18:48] MED LIST changes: -BELLADONNA/OPIUM 30 MG SUPP RC ONE; -CEFTRIAXONE SOD 1 GM/NS 50 ML 50 ML IV ONE; -DESFLURANE 240 ML BTL INH ONE; -GENTAMICIN 80MG/NS 100 ML 100 ML IV ONE; -IOPAMIDOL 610MG/1ML 300 MG/ML VIAL IV ONE; -LIDOCAINE HCL 2% LOCAL INJ 5 ML SDV VIAL INJ ONE; -MIDAZOLAM HCL 2 MG/2 ML VIAL ONE; -MORPHINE SULFATE INJ 4 MG/ML INJ 1ML ONE; -ONDANSETRON HCL INJ 2MG/ML 2ML 2 MG/ML VIAL ONE; -PROPOFOL IV EMULSION 10 MG/ML 20 ML VIAL ONE
--- NOTE | 2018-07-22 20:31 | Diagnostic Imaging Report ---
SHOULDER RIGHT COMPLETE, HUMERUS RIGHT 2+VIEWS - 3 views HISTORY: Trauma. Fall. COMPARISON: None available. FINDINGS: Bones: Comminuted markedly displaced right humeral neck and neck fracture with superior displacement of the distal fracture fragment and inferior displacement of the comminuted humeral head. Joints: Mild DJD of glenohumeral and AC joints. Soft tissues: The soft tissues appear unremarkable. IMPRESSION: Comminuted markedly displaced right humeral neck and neck Signed by: Dr. Codi Jin M.D. on 07/22/2018 8:28 PM
--- NOTE | 2018-07-22 21:30 | NUR ---
SHOULDER IMMOBILIZER APPLIED
[2018-07-22] MEDS ORDERED: HYDROCODONE/APAP 5MG-325MG TAB PO ONE (21:45)
[2018-07-22 21:55] VITALS: BP 110/62
== END 2018-07-22 21:59 | disposition home or self-care (01) ==
LOC: ER 18:48
DX: M25.511 Pain in right shoulder (principal); S42.351A Displaced comminuted fracture of shaft of humerus, right arm, initial encounter for closed fracture; W18.30XA Fall on same level, unspecified, initial encounter; Y92.008 Other place in unspecified non-institutional (private) residence as the place of occurrence of the external cause; I10 Essential (primary) hypertension; E11.9 Type 2 diabetes mellitus without complications; I50.9 Heart failure, unspecified; E03.9 Hypothyroidism, unspecified; E78.5 Hyperlipidemia, unspecified; I25.2 Old myocardial infarction
CPT/HCPCS: 99283

== ENCOUNTER 2018-07-23 22:15 | Inpatient (IN) | payer MEDICARE ==
[~2018-07-23] VITALS: Ht 157.5 cm; Wt 77.6 kg
--- OUTSIDE RECORDS SUMMARY | 2018-07-23 22:18 | XMS REPORT | Clinical Summary ---
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 Active albuterol sulfate Take 2.5 mg 0 (PROVENTIL) 2.5 mg/0.5 mL by solution for nebulization nebulization 3 (three) times a day as needed. Active dexlansoprazole Take 60 mg by 0 (DEXILANT) 60 mg capsule mouth daily. Active dicyclomine (BENTYL) 10 Take 10 mg by 0 MG capsule mouth 4 (four) times a day before meals and nightly. Active escitalopram (LEXAPRO) 20 Take 20 mg by 0 MG tablet mouth daily. Active fluticasone (FLOVENT HFA) Inhale 1 puff 0 110 mcg/actuation inhaler 2 (two) times a day as needed. Active insulin lispro (HumaLOG) Inject 20 0 100 unit/mL injection Units under the skin 3 (three) times a day before meals. Active HYDROcodone-acetaminophen Take 1 tablet 0 (NORCO) 10-325 mg per by mouth tablet every 6 (six) hours as needed for moderate pain. Active loratadine (CLARITIN) 10 Take 10 mg by 0 mg tablet mouth daily. Active montelukast (SINGULAIR) Take 10 mg by 0 10 mg tablet mouth daily. Active traZODone (DESYREL) 100 Take 100 mg 0 MG tablet by mouth nightly. Active Problems Problem Noted Date Fracture of right orbit 09/26/2016 Hx of CABG 09/26/2016 IDDM (insulin dependent diabetes mellitus) 09/26/2016 HTN (hypertension) 09/26/2016 Fall 09/24/2016 Social History Date Tobacco Use Types Packs/Day Years Used Never Smoker Alcohol Use Drinks/Week oz/Week Comments No Sex Assigned at Date Recorded Not on file Industry Job Start Date Occupation Not on file Not on file Not on file Travel End Travel History Travel Start No recent travel history available. Last Filed Vital Signs Not on file Plan of Treatment Health Maintenance Due Date Last Done Comments DIABETIC RETINAL EYE EXAM 1952 DIABETIC FOOT EXAM 1962 URINE MICROALBUMIN 1962 CERVICAL CANCER SCREENING 1973 BREAST CANCER SCREENING 2002 COLON CANCER SCREENING 2002 SHINGLES VACCINES (1 of 2002 2) PNEUMOCOCCAL 2017 POLYSACCHARIDE VACCINE AGE 65 AND OVER PNEUMOCOCCAL-13 2017 INFLUENZA VACCINE 02/10/2018 Results Not on fileafter 07/22/2017 Insurance Payer Benefit Subscriber ID Type Phone Address Plan / Group [employer] x[employer] ADV Advance Directives Patient has advance care planning documents on file. For more information, beau portillo contact: Reggie Campos [address] [place] [address]
[2018-07-23] MEDS ORDERED: HYDROMORPHONE 1MG/1ML INJ IV PRN (23:30)
[2018-07-23] MEDS ORDERED: SODIUM CHLORIDE FLUSH 10 ML SYR INJ PRN (23:30)
[2018-07-23] MEDS ORDERED: DEXTROSE 50% SYRINGE 50 ML IV PRN (23:30)
[2018-07-23 23:46] LABS: BASOPHILS % 0.2 % (0.0-1.0); EOSINOPHILS # (AUTO) 0.1 (0.0-0.4); EOSINOPHILS % 1.4 % (0.0-6.0); HEMATOCRIT 31.2 % (34.2-44.1); HEMOGLOBIN 10.1 g/dL (12.0-16.0); LYMPHOCYTES # (AUTO) 1.6 (1.0-3.2); LYMPHOCYTES % 19.4 % (18.0-39.1); MEAN CORPUSCULAR HEMOGLOBIN 32.8 pg (28-32); MEAN CORPUSCULAR HGB CONC 32.4 g/dL (31-35); MEAN CORPUSCULAR VOLUME 101.3 fL (81-99); MONOCYTES # (AUTO) 0.7 (0.2-0.8); MONOCYTES % 8.4 % (4.4-11.3); NEUTROPHILS # (AUTO) 5.9 (2.1-6.9); PLATELET COUNT 374 x10e3/uL (140-360); RED BLOOD COUNT 3.08 x10e6/uL (3.6-5.1); RED CELL DISTRIBUTION WIDTH 12.6 % (11.7-14.4)
[2018-07-24] VITALS (10 sets, daily range): BP systolic 101–125; BP diastolic 58–63
[2018-07-24 00:04] LABS: ALBUMIN 2.8 g/dL (3.5-5.0); ALBUMIN/GLOBULIN RATIO 0.7 (0.8-2.0); ANION GAP 17.8 mmol/L (8-16); CALCIUM 9.4 mg/dL (8.4-10.2); CREATININE, SERUM 1.27 mg/dL (0.57-1.11); POTASSIUM 4.8 mmol/L (3.5-5.1)
--- OUTSIDE RECORDS SUMMARY | 2018-07-24 00:07 | XMS REPORT | Clinical Summary ---
Author Author [facility] Organization [facility] Address Unknown Phone Unavailable Care Team Providers Care Core Worker Name Role Phone Quan Ramos MD PCP [...] INFLUENZA VACCINE 02/10/2018 Results Not on fileafter 07/23/2017 Insurance Payer Benefit Subscriber ID Type Phone Address Plan / Group [employer] x[employer] ADV Advance Directives Patient has advance care planning documents on file. For more information, beau portillo contact: Reggie Campos [address] [place] [address]
--- NOTE | 2018-07-24 00:30 | NUR ---
RECEIVED PATIENT FROM. ADMITTED FOR INTRACTABLE PAIN FROM R SHOULDER S/P FALL OVER A WEEK AGO. PAIN AT THIS TIME IS 10/10- SEE EMAR FOR MEDICATION ADMINISTRATION. SENT TO UNIT FROM ER WITH IMMOBILIZER TO RIGHT ARM- PATIENT REMOVED THE IMMOBILIZER. INFORMED PATIENT AND FAMILY THAT THE IMMOBILIZER NEEDS TO STAY ON WHILE IN THE HOSPITAL. PATIENT STATED "I DON'T CARE" WHILE CONTINUED TO REMOVE THE IMMOBILIZER. LEFT UA 20G IV-SL. SKIN INTACT. NON PITTING EDEMA TO BILAT LE AND RUE. BRUISING NOTED TO RUE, AND RIGHT HIP. SMALL ABRASIONS TO BILAT. LE. UPDATED PATIENT AND SPOUSE ON PLAN OF CARE. NO NEEDS VOICED AT THIS TIME. WILL CONTINUE TO MONITOR THE PATIENT. BED LOCKED AND IN LOWEST POSITION, CALL LIGHT WITHIN EASY REACH. BED ALARM ACTIVATED.
--- NOTE | 2018-07-24 01:24 | Diagnostic Imaging Report ---
CHEST SINGLE (PORTABLE), 07/24/2018 12:00 AM Technique: CHEST SINGLE (PORTABLE) Comparison: 12/13/2017 Clinical history: Preoperative Findings: See Impression Impression: 1. Stable cardiomediastinal silhouette status post median sternotomy. 2. Bibasilar linear opacities, likely atelectasis. No effusion or pneumothorax. 3. Chronic appearing left humeral deformity. New displaced right humeral neck fracture. Signed by: Dr Yuliana Goodson MD on 07/24/2018 1:20 AM
--- NOTE | 2018-07-24 01:28 | Diagnostic Imaging Report ---
EXAM: CT SHOULDER RIGHT WO DATE: 07/24/2018 12:00 AM INDICATION: Status post fall, evaluate for fracture COMPARISON: X-ray from 07/22/2018 TECHNIQUE: The right shoulder was scanned using a multidetector helical scanner. Coronal and sagittal reformations were obtained. CT low dose techniques were utilized, as applicable. IV Contrast: 0 ml Isovue 300/370 FINDINGS: SOFT TISSUES/BONES: Decreased bone mineralization. There is a comminuted markedly displaced right humeral neck fracture with superior displacement of the distal fracture fragment, and associated comminuted fracture through the right greater tuberosity and anatomic neck. Humeral head articular surface contour appears intact. Degenerative changes of the right glenohumeral joint and acromioclavicular joint. Associated soft tissue swelling is present. IMPRESSION: Comminuted displaced right humeral neck fracture as seen on recent radiographs. Signed by: Dr Yuliana Goodson MD on 07/24/2018 1:25 AM
[2018-07-24] MEDS: ONDANSETRON HCL INJ 2MG/ML 2ML 2 MG/ML VIAL IV PRN (01:31)
[2018-07-24] MEDS: HYDROMORPHONE 2MG/ML 2 MG/ML ML IV PRN ×3 (01:31→17:10)
--- NOTE | 2018-07-24 07:21 | NUR ---
Received patient this morning, rounds completed, a/ox3, in bed and in some pain to right shoulder and has been medicated r/t right humeral head fx, call light within reach, refuses to wear sling, bed alarms in place, will monitor
[2018-07-24] MEDS: INSULIN REGULAR, HUMAN 100 UNIT/1 ML 3ML VIAL SQ SCH ×4 (07:30→20:47)
[2018-07-24] MEDS: LEVOTHYROXINE SODIUM 50 MCG TAB PO SCH (08:29)
[2018-07-24] MEDS ORDERED: POTASSIUM CHLORIDE 10MEQ EA PO SCH (09:00)
[2018-07-24] MEDS: PREDNISOLONE ACETATE 1% OPTH SUSP 5 ML BTL OP SCH (09:00)
[2018-07-24] MEDS: ESCITALOPRAM OXALATE 10 MG TAB PO SCH (09:07)
[2018-07-24] MEDS: RANOLAZINE 500 MG TABSR PO SCH ×2 (09:07→17:02)
[2018-07-24] MEDS: LORATADINE 10 MG TAB PO SCH (09:07)
[2018-07-24] MEDS: FUROSEMIDE 40 MG TAB PO SCH (09:15)
--- NOTE | 2018-07-24 12:36 | NUR ---
CONSULTATION - ORTHOPEDICS Mrs. Black is a right hand dominant female who presented to the ED after having a mechanical fall with complaints of right shoulder pain from 1 week ago. She w ent home after the ER visit and continued to have significant pain. She denies any numbness, paresthesias or loss of distal motor function. Denies pain in any other extremity. PMdHx: HTN, Allergies, Hypothyroidism, DM, HLD, Falls, urethral diverticulum, urethritis, intractable pain, stones, Cataracts, Fibromyalcia, Allergies: Erythromycin, IV Iodine, Phytoin sodium, Sulfa, Codeine SurgHx: , Hysterectomy, Carpal Tunnel, Appendectomy, Cholecystectomy Meds: See Med Reconciliation FamHx: Non-contributory Social Hx: Disabled VS: T 96.4, HR 102, RR 20, BP 114/59, O2 93% on Room Air NAD, Alert, Awake and Oriented Right Shoulder No open lesions or sores, + Echymosis Motor: +AIN, PIN, Radial, Median, Ulnar Sensation grossly intact distally and along Axillary region Pulse + Radial, + capillary refill Compartments soft Negative calf tenderness Xrays and CT demonstrate Impacted displaced surgical neck fracture of Proximal Humerus 67 year old F with Right Proximal Humerus Fracture Plan for ORIF vs Reverse Total Shoulder on 07/26/28 Need medical optimization Analgesics PRN DVT Prophylaxis recommended NWYeny MCELROYE, Keep in immobilizer Rest & Ice Patient and aware and amendable to plan. All questions were answered. DO [facility]
--- NOTE | 2018-07-24 13:36 | NUR ---
Patient alert and responsive, rounds by attending and orders to consult Cardiology for clearance and being on Plavix and Hx of NH and stents placement
[2018-07-24 13:48] LABS: BASOPHILS % 0.4 % (0.0-1.0); EOSINOPHILS # (AUTO) 0.3 (0.0-0.4); EOSINOPHILS % 3.4 % (0.0-6.0); HEMATOCRIT 29.1 % (34.2-44.1); HEMOGLOBIN 9.5 g/dL (12.0-16.0); LYMPHOCYTES % 27.3 % (18.0-39.1); MEAN CORPUSCULAR HEMOGLOBIN 32.8 pg (28-32); MEAN CORPUSCULAR HGB CONC 32.6 g/dL (31-35); MEAN CORPUSCULAR VOLUME 100.3 fL (81-99); MONOCYTES # (AUTO) 0.7 (0.2-0.8); MONOCYTES % 9.1 % (4.4-11.3); NEUTROPHILS # (AUTO) 4.3 (2.1-6.9); NEUTROPHILS % 59.1 % (38.7-80.0); PLATELET COUNT 365 x10e3/uL (140-360); RED CELL DISTRIBUTION WIDTH 12.6 % (11.7-14.4)
[2018-07-24 14:00] LABS: INR 0.95; PROTHROMBIN TIME 13.6 seconds (11.9-14.5)
[2018-07-24 14:01] LABS: PARTIAL THROMBOPLASTIN TIME 28.3 seconds (23.8-35.5)
[2018-07-24 14:08] LABS: ALBUMIN 2.7 g/dL (3.5-5.0); ALBUMIN/GLOBULIN RATIO 0.7 (0.8-2.0); ANION GAP 14.7 mmol/L (8-16); CALCIUM 9.1 mg/dL (8.4-10.2); CREATININE, SERUM 1.15 mg/dL (0.57-1.11); POTASSIUM 4.7 mmol/L (3.5-5.1)
--- NOTE | 2018-07-24 15:47 | History and Physical ---
REASON FOR ADMISSION: Right HUMERUS fracture needing medical assistance. HPI: This is a 67-year-old female who has a past medical history of CAD, acid reflux, recent right humerus fracture, hypothyroidism, and hyperlipidemia who comes into the ED with a right humerus fracture. Patient was recently seen at the ER, discharged to go see the orthopedics doctor but due to insurance issues, she was unable to see her. Instead, the patient was then admitted to the hospital for further management and care. Orthopedics was consulted. Patient was evaluated at bedside on the medical floor, currently doing well with no other issues. Patient has minimal pain associated with the right humerus. She is very stable, alert and oriented x 4 on examination. REVIEW OF SYSTEMS: Pertinent positives: Recent fall with humerus fracture. Pertinent negatives: No reports of any chest pain, palpitation, nausea, vomiting, diarrhea, dysuria, hematuria, frequency, urgency, lightheadedness, dizziness, abdominal pain, headache, shortness of breath, cough, congestion, fever, or any other complaints. The rest of the 14-point review of systems have been reviewed with the patient and are negative. ALLERGIES: ERYTHROMYCIN, IV IODINE, PHENYTOIN, SULFA, CODEINE. PAST MEDICAL HISTORY: Mechanical fall with humerus fracture, hypothyroidism, CAD, hypertension, acid reflux, insulin. PAST SURGICAL HISTORY: Reports none. FAMILY HISTORY: Hypertension and diabetes. SOCIAL HISTORY: No drugs, no alcohol, does not smoke. Good social support. PHYSICAL EXAMINATION VITAL SIGNS: Temperature is 98.1, pulse 99, respiratory rate is 18, blood pressure 125/60, pulse ox 93% on room air. GENERAL: Not in acute distress, alert and oriented x 3, cooperative on examination. HEENT: Head, normocephalic and atraumatic. Eyes: Pupils equal, round, and reactive to light bilaterally. Extraocular movements intact bilaterally. Throat with no evidence of any erythema or exudates in the posterior pharynx. Has poor dentition. NECK: Supple. Good range of motion. PULMONARY: Clear to auscultation bilaterally. No wheezing. No rales. No rhonchi. No crackles appreciated. CARDIOVASCULAR: Positive S1, S2. No murmurs, rubs, or gallops appreciated. ABDOMEN: Soft, nondistended, and nontender to palpation. Bowel sounds present. MUSCULOSKELETAL: Strength is 5/5 throughout. No evidence of any muscle deficit on examination. No weakness appreciated. NEUROLOGICAL: Cranial nerves II-XII are grossly intact. No evidence of any neurological deficits on exam. SKIN: Intact. Warm to touch. Good cap refill. PSYCHIATRIC: Normal affect and mood. EXTREMITIES: No edema. Good range of motion throughout. LAB FINDINGS: Show a white count of 8.4, hemoglobin 10, hematocrit is 31, MCV is 101, platelets of 374. Chemistries; sodium 136, potassium is 4.8, chloride 98, bicarb 25, anion gap of 17, BUN is 29, creatinine is 1.27, glucose 235, calcium 9.4. LFTs were normal. Albumin was 2.8. Urinalysis, none. MICROBIOLOGY: None. IMAGING STUDIES: CT of the shoulder shows comminuted displaced right humeral neck fracture. Chest x-ray showed stable cardiomediastinal silhouette, status post median sternotomy. Chronic-appearing left humeral deformity, now new displaced right humeral neck fracture. IMPRESSION 1. Right humeral fracture. 2. Type 2 diabetes. 3. Coronary artery disease. 4. Hypothyroidism. 5. Acid reflux. PLAN: At this time, orthopedics was consulted already. CT imaging of the right humerus was consistent with a fracture. I am not sure when she is scheduled for surgery as there is currently no dictated note. We are going to resume same home medications except for we will hold the Plavix for now as the patient will likely undergo surgery, but I will need to discuss this with the nursing staff to see that the patient had a recent stent. If so, the patient must continue on Plavix and we will have to get cardiology consultation. Started on insulin sliding scale, Accu-Cheks, and A1c. Continue with her Lasix daily as well as potassium supplements. She is currently on insulin sliding scale. Pain is controlled. We will continue with same plan of care. We will get PT/OT once surgery has been completed. Job#: [id number] LIU VARGAS
[2018-07-24] MEDS: FAMOTIDINE 20 MG TAB PO SCH (16:41)
--- NOTE | 2018-07-24 17:10 | NUR ---
Patient in bed, provided with incontinence care and applied Nystatin to groin and gluteal folds for incontinence dermatitis, pains well managed, repositioned while in bed, having dinner at this time but appetite not very great, offered supplements, will monitor. Rounds by Ortho surgeon today and orders in place for consent for surgery on Thursday, patient states will be in to sign consent.
--- NOTE | 2018-07-24 19:06 | NUR ---
Report given to on coming nurse and rounds completed, patient alert and responsive, perineal care provided and nystatin pwd applied to groin area, repositioned per protocol, pains well managed and call light within reach
[2018-07-24] MEDS: ATORVASTATIN 20 MG TAB PO SCH (20:47)
--- NOTE | 2018-07-24 21:53 | Consultation ---
DATE OF CONSULTATION: July 24, 2018 CARDIOLOGY CONSULTATION CHIEF COMPLAINT: Shoulder pain. REASON FOR CONSULTATION: History of coronary artery disease and preoperative cardiovascular assessment. HISTORY OF PRESENT ILLNESS: Patient is a 67-year-old female with history of coronary artery disease, status post stent placement many years ago and status post coronary artery bypass graft surgery in 2014, who presented with planned shoulder surgery. We are consulted for preoperative cardiovascular evaluation and management of her chronic cardiovascular issues during this admission. She denies any ongoing chest pain, shortness of breath, or heart failure symptoms. PAST MEDICAL HISTORY 1. Coronary artery disease, status post stent placement. 2. Status post coronary artery bypass graft surgery. 3. Hypertension. 4. Hyperlipidemia. 5. Chronic kidney disease. 6. Diabetes. SOCIAL HISTORY: Patient denies any smoking, alcohol, or drug use. FAMILY HISTORY: No family history of early CAD or sudden cardiac . REVIEW OF SYSTEMS: As per the HPI, otherwise negative. PHYSICAL EXAMINATION VITALS: Temperature 98.1, pulse 99, respiratory rate 18, blood pressure 125/60, satting 93% on room air. GENERAL: Middle-aged woman, in no acute distress. CARDIOVASCULAR: Regular rate and rhythm. No murmurs, rubs, or gallops. Palpable carotid pulses. Palpable radial pulses. LUNGS: Clear to auscultation bilaterally. ABDOMEN: Soft, nontender, nondistended. No organomegaly. NEURO AND PSYCH: Alert and oriented to person, place, and time. Normal affect. INPATIENT MEDICATIONS: Reviewed. LABORATORY DATA: Reviewed. IMAGING: Data reviewed. EKG reviewed. ASSESSMENT 1. Coronary artery disease, status post PCI in remote past. 2. Status post coronary artery bypass graft surgery in 2014. 3. Chronic systolic heart failure. 4. Hypertension. 5. Hyperlipidemia. PLAN: Patient is asymptomatic from a cardiovascular standpoint, currently appears euvolemic by exam. EKG without any ischemic findings. Recommend obtaining preoperative echocardiogram to evaluate for LV function as well as valvular function. Continue her home cardiovascular medications otherwise including aspirin and Plavix. Given her previous cardiac history and no ongoing symptoms, patient will be at low risk for perioperative cardiovascular events for a low-risk orthopedic surgery. Thank you for this consult. We will continue to follow. Job#: [id number] ANTONIO
[2018-07-25] VITALS (7 sets, daily range): BP systolic 90–141; BP diastolic 58–70
[2018-07-25] MEDS: HYDROMORPHONE 2MG/ML 2 MG/ML ML IV PRN ×3 (00:17→09:47)
[2018-07-25] MEDS: PREDNISOLONE ACETATE 1% OPTH SUSP 5 ML BTL OP SCH (08:26)
[2018-07-25] MEDS: RANOLAZINE 500 MG TABSR PO SCH ×2 (08:26→17:07)
[2018-07-25] MEDS: LORATADINE 10 MG TAB PO SCH (08:26)
[2018-07-25] MEDS: MONTELUKAST SODIUM 10 MG TAB PO SCH (08:26)
[2018-07-25] MEDS: PANTOPRAZOLE SOD 40 MG TABEC PO SCH (08:26)
[2018-07-25] MEDS: INSULIN REGULAR, HUMAN 100 UNIT/1 ML 3ML VIAL SQ SCH ×4 (08:26→22:09)
[2018-07-25] MEDS: LEVOTHYROXINE SODIUM 50 MCG TAB PO SCH (08:26)
[2018-07-25] MEDS: ESCITALOPRAM OXALATE 10 MG TAB PO SCH (08:26)
[2018-07-25] MEDS: FUROSEMIDE 40 MG TAB PO SCH (08:26)
--- NOTE | 2018-07-25 08:26 | NUR ---
PT RECEIVED SITTING UP IN BED, AA/O X3, C/O PAIN TO RIGHT SHOULDER, MEDICATED. ASSESSMENT COMPLETE, VSS. RIGHT ARM ELEVATED, PT REFUSES TO WEAR SLING. +CIRCULATION AND MOVEMENT. PERICARE PROVIDED, REDNESS WITH INCREASED MOISTURE NOTED TO THAT AREA. CLEANSED, DRIED, AND NYSTATIN APPLIED. ALLEVYN DRESSING TO SACRUM APPLIED DUE TO LACK OF AMBULATION. PT VOICED "IM STILL RED BECAUSE MY AND SON GET EMBARRASSED TO CHANGE ME. THEY DONT LIKE TO, SO THEY DONT CHANGE ME ENOUGH". REQUESTING A "CHANGER" WHEN SHE IS DISCHARGED. WILL REPORT TO CASE MANAGEMENT.
[2018-07-25] MEDS: MYBETRIQ 50MG PO SCH (09:00)
[2018-07-25] MEDS: NYSTATIN 15 GM POWDER UD BTL TOP SCH (09:45)
[2018-07-25] MEDS: ONDANSETRON HCL INJ 2MG/ML 2ML 2 MG/ML VIAL IV PRN (09:47)
[2018-07-25] MEDS: FAMOTIDINE 20 MG TAB PO SCH (12:36)
[2018-07-25] MEDS: ASPIRIN 81 MG CHEW TAB PO SCH (13:04)
[2018-07-25] MEDS: CLOPIDOGREL BISULFATE 75 MG TAB PO SCH (13:04)
--- NOTE | 2018-07-25 13:14 | NUR ---
PROGRESS NOTE - ORTHOPEDICS Patient seen and examined resting comfortably at bedside. Patient continues to complain of right shoulder pain. No numbness, paresthesias or loss of distal motor function. Denies pain in any other extremity VS T 98.8, HR 112, RR 18, BP 10/58, O2 90% on room air Right Upper Extremity Motor; AIN, PIN, Radial, Median, Ulnar Sensation grossly intact distally and along Axillary region Pulses: + Radial, + capillary refill Compartments soft H/H (07/24/18) 9.5/29.1 67 year old F with Right Proximal Humerus Fracture Plan for OR tomorrow for Open Reduction Internal Fixation NPO except meds after midnight Hold anticoagulation after midnight- may resume after surgery DVT prophylaxis NWB Right Upper Extremity Encourage incentive spirometry IVF while NPO Patient aware and amendable to plan. All questions answered. DO [facility]
--- NOTE | 2018-07-25 14:47 | Progress Note ---
DATE: July 25, 2018 SUBJECTIVE: Patient is doing well today with no issues. She is scheduled for ORIF tomorrow by orthopedics. She is tolerating her pain well with no issues. VITAL SIGNS: Temperature is 98.8, pulse 112, respiratory rate is 18, blood pressure is 106/58, and pulse ox 95% on room air. LAB FINDINGS: Show white count 7.3, hemoglobin 9.5 and hematocrit 29, platelets of 365. Chemistries are normal. MICROBIOLOGY: No new studies. IMAGING STUDIES: Shoulder x-ray shows new displaced right femoral neck fracture. CT of the shoulder shows a displaced right humeral neck fracture. PHYSICAL EXAMINATION GENERAL: Not in acute distress, alert and oriented x3. Cooperative on examination. HEENT: Head is normocephalic, atraumatic. Eyes: Pupils equal, round, and reactive to light bilaterally. Extraocular movements intact bilaterally. Throat; no evidence of any erythema or exudates in the posterior pharynx. Has poor dentition. NECK: Supple with good range of motion. PULMONARY: Clear to auscultation bilaterally. No wheezing, no rales, no rhonchi, no crackles appreciated. CARDIOVASCULAR: Positive S1 and S2. No murmurs, rubs, or gallops appreciated. ABDOMEN: Soft, nondistended, nontender to palpation. Bowel sounds present. MUSCULOSKELETAL: Strength is 5/5 throughout. No evidence of any musculoskeletal deficit on examination. No weakness appreciated. NEUROLOGICAL: Cranial nerves II through XII are grossly intact. No evidence of any neurological deficits on exam. SKIN: Intact. Warm to touch. Good cap refill. PSYCHIATRIC: Normal affect and mood. EXTREMITIES: No edema. Good range of motion throughout. IMPRESSION 1. Right humeral neck fracture. 2. Type 2 diabetes. 3. Coronary artery disease. 4. Hypothyroidism. 5. Acid reflux. PLAN: At this time, patient is scheduled for surgery tomorrow by orthopedics. Cardiology was consulted for clearance. She has significant cardiovascular disease. We will hold Plavix for now. Continue with insulin sliding scale, Accu-Cheks, and A1c. She is receiving diuretics as well. We will work with PT and OT after surgery. Job#: [id number] PÉREZ
[2018-07-25 16:29] LABS: CLARITY,URINE HAZY (CLEAR); COLOR,URINE YELLOW (YELLOW)
[2018-07-25 16:30] LABS: BILIRUBIN,URINE NEGATIVE (NEGATIVE); KETONES,URINE NEGATIVE (NEGATIVE); LEUKOCYTE ESTERASE ,URINE 1+ (NEGATIVE); NITRITE,URINE NEGATIVE (NEGATIVE); PROTEIN,URINE DIPSTICK TRACE (NEGATIVE); URINE UROBILINOGEN 0.2 mg/dL (0.2 - 1)
[2018-07-25 16:31] LABS: BACTERIA,URINE MODERATE /HPF; EPITHELIAL CELLS,URINE MODERATE /LPF; RBC,URINE 0-5 /HPF (0-5)
[2018-07-25] MEDS: ATORVASTATIN 20 MG TAB PO SCH (22:08)
[2018-07-26] VITALS (9 sets, daily range): BP systolic 93–117; BP diastolic 48–58
[2018-07-26 05:59] LABS: BASOPHILS % 0.3 % (0.0-1.0); EOSINOPHILS # (AUTO) 0.2 (0.0-0.4); EOSINOPHILS % 2.6 % (0.0-6.0); HEMATOCRIT 27.4 % (34.2-44.1); HEMOGLOBIN 8.9 g/dL (12.0-16.0); LYMPHOCYTES # (AUTO) 1.9 (1.0-3.2); LYMPHOCYTES % 26.3 % (18.0-39.1); MEAN CORPUSCULAR HEMOGLOBIN 32.7 pg (28-32); MEAN CORPUSCULAR HGB CONC 32.5 g/dL (31-35); MEAN CORPUSCULAR VOLUME 100.7 fL (81-99); MONOCYTES # (AUTO) 0.8 (0.2-0.8); MONOCYTES % 11.3 % (4.4-11.3); NEUTROPHILS # (AUTO) 4.3 (2.1-6.9); NEUTROPHILS % 59.1 % (38.7-80.0); PLATELET COUNT 388 x10e3/uL (140-360); RED BLOOD COUNT 2.72 x10e6/uL (3.6-5.1); RED CELL DISTRIBUTION WIDTH 12.8 % (11.7-14.4)
[2018-07-26 06:11] LABS: INR 1.03; PROTHROMBIN TIME 14.4 seconds (11.9-14.5)
[2018-07-26 06:12] LABS: PARTIAL THROMBOPLASTIN TIME 29.7 seconds (23.8-35.5)
[2018-07-26] MEDS: HYDROMORPHONE 2MG/ML 2 MG/ML ML IV PRN ×2 (06:20→10:34)
[2018-07-26 06:23] LABS: ANION GAP 12.6 mmol/L (8-16); CALCIUM 8.8 mg/dL (8.4-10.2); CREATININE, SERUM 1.27 mg/dL (0.57-1.11); POTASSIUM 4.6 mmol/L (3.5-5.1)
[2018-07-26] MEDS: PANTOPRAZOLE SOD 40 MG TABEC PO SCH (07:30)
[2018-07-26] MEDS: INSULIN REGULAR, HUMAN 100 UNIT/1 ML 3ML VIAL SQ SCH ×4 (07:30→20:50)
[2018-07-26] MEDS ORDERED: DEXTROSE 5%/0.9% SOD CHL 1,000 ML IV SCH (08:45)
--- NOTE | 2018-07-26 08:47 | NUR ---
Patient alert and responsive, VSS but BP slightly low, notified MD of urinalysis and BP and orders in place for ABX, fluids as NPO, PT eval and treat and home health. Will monitor.
[2018-07-26] MEDS: FAMOTIDINE 20 MG TAB PO SCH (09:00)
[2018-07-26] MEDS: RANOLAZINE 500 MG TABSR PO SCH ×2 (09:00→17:00)
[2018-07-26] MEDS: CLOPIDOGREL BISULFATE 75 MG TAB PO SCH (09:00)
[2018-07-26] MEDS: ASPIRIN 81 MG CHEW TAB PO SCH (09:00)
[2018-07-26] MEDS: MYBETRIQ 50MG PO SCH (09:00)
[2018-07-26] MEDS: PREDNISOLONE ACETATE 1% OPTH SUSP 5 ML BTL OP SCH (09:03)
[2018-07-26] MEDS: ESCITALOPRAM OXALATE 10 MG TAB PO SCH (09:03)
[2018-07-26] MEDS: LORATADINE 10 MG TAB PO SCH (09:03)
[2018-07-26] MEDS: MONTELUKAST SODIUM 10 MG TAB PO SCH (09:04)
[2018-07-26] MEDS: NYSTATIN 15 GM POWDER UD BTL TOP SCH (09:04)
[2018-07-26] MEDS: LEVOTHYROXINE SODIUM 50 MCG TAB PO SCH (09:04)
[2018-07-26] MEDS: CEFTRIAXONE SOD 1 GM/NS 50 ML 50 ML IV SCH (09:10)
[2018-07-26] MEDS: FUROSEMIDE 40 MG TAB PO SCH (09:10)
--- NOTE | 2018-07-26 09:44 | Progress Note ---
DATE: July 26, 2018 MEDICINE PROGRESS NOTE SUBJECTIVE: Patient is doing well today with no other issues. She is scheduled for right humeral fracture fixation today by orthopedics. Her pain is well controlled. VITAL SIGNS: Temperature 97.4, pulse 97, respiratory rate is 18, blood pressure is /56, and pulse ox is 94% on room air. LAB FINDINGS: White count 7.3, hemoglobin 8.9, hematocrit 27, platelets of 388. Chemistries: sodium 133, potassium 4.6, chloride 98, bicarb 30, anion gap of 12, BUN is 31, creatinine is 1.27, glucose is 142, calcium is 8.8. Urinalysis none. MICROBIOLOGY: None. IMAGING STUDIES: None. PHYSICAL EXAMINATION GENERAL: Not in acute distress, alert and oriented x3. Cooperative on examination. HEENT: Head is normocephalic, atraumatic. Eyes: Pupils equal, round, and reactive to light bilaterally. Extraocular movements intact bilaterally. Throat; no evidence of any erythema or exudates in the posterior pharynx. Has poor dentition. NECK: Supple with good range of motion. PULMONARY: Clear to auscultation bilaterally. No wheezing, no rales, no rhonchi, no crackles appreciated. CARDIOVASCULAR: Positive S1 and S2. No murmurs, rubs, or gallops appreciated. ABDOMEN: Soft, nondistended, nontender to palpation. Bowel sounds present. MUSCULOSKELETAL: Strength is 5/5 throughout. No evidence of any musculoskeletal deficit on examination. No weakness appreciated. NEUROLOGICAL: Cranial nerves II through XII are grossly intact. No evidence of any neurological deficits on exam. SKIN: Intact. Warm to touch. Good cap refill. PSYCHIATRIC: Normal affect and mood. EXTREMITIES: No edema. Good range of motion throughout. IMPRESSIONS 1. Right humeral neck fracture due to mechanical fall. 2. Type 2 diabetes. 3. Coronary artery disease. 4. Hypothyroidism. 5. History of acid reflux. 6. Chronic hypotension. PLAN: At this time, she is scheduled for surgery later today at 1 p.m. Will put on low-dose D5 NS at 60 mL per hour for hydration and to maintain her sugars to be elevated prior to surgery. Will holding Plavix for now for surgery. We are going to get PT/OT after surgery. Put a home health order for home health, home PT and OT as well. Continue following. Consultants are orthopedics and cardiology. Job#: [id number] MIKI
[2018-07-26] MEDS: ONDANSETRON HCL INJ 2MG/ML 2ML 2 MG/ML VIAL IV PRN (10:34)
--- NOTE | 2018-07-26 10:34 | NUR ---
Second Hibeclens bath completed and patient with some pains and medicated as ordered, repositioned to left side and will monitor as NPO at the moment. Plavix held this morning due to procedure
--- NOTE | 2018-07-26 12:29 | NUR ---
Patient's signed consent for procedure to be done at this time
--- NOTE | 2018-07-26 12:45 | NUR ---
IMM GIVEN WITH EXPLANATION. PATIENT SIGNED ORIGINAL DOCUMENT DUE TO PATIENT WEAKNESS. COPY PLACED IN CHART. COPY OF SIGNED DOCUMENT GIVEN TO PATIENT AND PLACED IN CARE TRANSITION FOLDER. CM CONTACT INFORMATION GIVEN TO PATIENT.
[2018-07-26] MEDS ORDERED: BACITRACIN 50,000 UNIT VIAL ONE ×2 (13:04→17:26)
[2018-07-26] MEDS ORDERED: LIDOCAINE 1% W/EPINEPHRINE 20 ML VIAL ONE (13:04)
--- NOTE | 2018-07-26 13:10 | NUR ---
Patient picked up for surgical procedure at this time
[2018-07-26] MEDS ORDERED: HEPARIN SOD/SOD CHLORIDE 1,000 ML ONE (13:48)
[2018-07-26] MEDS ORDERED: VANCOMYCIN HCL 1 GM VIAL ONE (17:22)
[2018-07-26] MEDS ORDERED: ROPIVACAINE 246.25 MG, EPINEPHRINE HCL 1:1000 1ML 0.5 MG, CLONIDINE HCL 0.08 MG, KETORO... INJ ONE ×5 (17:30)
--- NOTE | 2018-07-26 18:27 | NUR ---
Patient still in OR for procedure at this time
--- NOTE | 2018-07-26 19:02 | NUR ---
OPERATIVE NOTE - ORTHOPEDICS PREOPERATIVE DIAGNOSES: 1. Comminuted displaced proximal humerus surgical neck fracture POSTOPERATIVE DIAGNOSES: 1.Comminuted displaced proximal humerus surgical neck fracture PROCEDURE PERFORMED:Right Reverse Cemented Total Shoulder Arthroplasty, & Biceps Tenodesis. Flouroscopic Interpretation ANESTHESIA: General ESTIMATED BLOOD LOSS: [id number]. Blood: 1 Unit PRBC Provided COMPLICATIONS: None. COMPONENTS:Exactech Equinox Reverse Shoulder Glenoid Plate Standard Cage, Compression Screw/Locking Cap Kit (4.5 x 22 mm, 4.5 x 26 mm, 4.5 x 30 mm, 4.5 x 34 mm, Glenosphere 38mm, Platform Fracture Humeral Stem - Cemented Right 6.5 mm, Humeral Adapter Tray + 5 mm, 38 mm Humeral Liner 0 mm BRIEF HISTORY: The patient is an67 year old right hand dominant female who presented to the ED after a mechanical fall over 1 week ago with a comminuted displaced surgical neck fracture of the proximal humerus. PROCEDURE: The patient was taken to the operative suite, placed on the operative field.Anesthesia provided her after an arterial line was obtained, an d in the operating room, she underwent general endotracheal anesthesia and received preoperative antibiotics. Once adequately sedated, the patient was placeda modifiedbeach chair position. Care was ensured that she was well positioned, adequately secured and padded. At this point, the right upper extremity was then prepped and draped in the usual sterile fashion. A deltopectoral approach was used and taken down to the skin with a #15 blade scalpeland electrocautery to maintain hemostasis. The cephalic vein was preserved and taken medially with the pec muscles. Any perforating bleeders were cauterized with Bovie to obtain hemostasisat the clavipectoral fascia. At this time, an attempt at open reduction internal fixation was made with the use of flouroscopy, however the fracture fragment would not remain reduced and became even more comminuted. Due to her bone quality and inability to maintain reduction, a decision to perform a cemented reverse total shoulder was made.The conjoined tendon was retracted medially and significant fracture hematoma was evacuated. The biceps groove was found and t he long head of the biceps was sutured to the pec at its normal position. The proximal portion of the the tendon was tracked proximally through the rotator interval. The fracture fragments were tagged with fiberwire stitches. The fracture fragments of the articular surface was removed and exposure to the glenoid was obtained. The glenoid was prepared in normal fashion and the base plate was inserted with 4 screws to ensure adequate fixation. A glenosphere was inserted and locked into place. Adequate position was demonstrated on flouroscopy. Attention was then brought to the humerus. The humerus was prepped and throughly irrigated. After reaming and adequate alignment, trials were obtained demonstrating adequate size and stability which were evaluated with flouroscopy. The humeral canal was irrigated and a gel foam was packed distally. Cement was injected into the humeral and the implant was inserted in appropriate depth and alignment. After the cement hardened, humeral trays and liners were assembled and placed to achieve adequate position and stability. The joint was thoroughly irrigated, and sutures around the cuff and humeral gre ater tuberosity were tied in place to the proximal portion of the implant. The subscap was repaired and 1 gm vancomycin powder was sprinkled within the joint. A drain was placed and the deltopectoral interval was closed with vicryl. The subcutaneous tissue was also closed with vicryl and the skin was closed with moncryl. Dermabond was placed on top of the skin with an Aquacel dressing. The drain was attached to the hemovac and the patient was placed in a shoulder immobilizer. The patient was taken to recovery where she was examined and was neurovascularly intact. A decision was made to provide the patient 1 unit of PRBC intraoperatively due to her fragile cardiovascular nature, operative blood loss, and preoperative hemoglobin status. DISPOSITION: The patient tolerated well and transferred to Postanesthesia Care Unit in satisfactory condition.
[2018-07-26] MEDS ORDERED: MIDAZOLAM HCL 2 MG/2 ML VIAL ONE (19:04)
[2018-07-26] MEDS ORDERED: FENTANYL CITRATE/PF 100MCG/2 ML INJ ONE (19:04)
[2018-07-26] MEDS ORDERED: GLYCOPYRROLATE INJ 1MG/ 5 ML SYR ONE (19:10)
[2018-07-26] MEDS ORDERED: ONDANSETRON HCL INJ 2MG/ML 2ML 2 MG/ML VIAL ONE (19:10)
[2018-07-26] MEDS ORDERED: ROCURONIUM BROMIDE 10 MG/ML 5ML VIAL ONE (19:10)
[2018-07-26] MEDS ORDERED: LIDOCAINE HCL 2% LOCAL INJ 5 ML SDV VIAL INJ ONE (19:10)
[2018-07-26] MEDS ORDERED: PHENYLEPHRINE HCL 1% 10 MG/ML VIAL ONE (19:10)
[2018-07-26] MEDS ORDERED: SEVOFLURANE INHAL SOLN 250 ML PEN BTL ONE (19:10)
[2018-07-26] MEDS ORDERED: NEOSTIGMINE 5 MG/5ML SYR ONE (19:10)
[2018-07-26] MEDS ORDERED: EPHEDRINE SULFATE INJ 50 MG/10 ML SYR ONE (19:10)
[2018-07-26] MEDS ORDERED: PROPOFOL IV EMULSION 10 MG/ML 20 ML VIAL ONE (19:10)
[2018-07-26 19:12] LABS: BASOPHILS % 0.1 % (0.0-1.0); EOSINOPHILS % 0.1 % (0.0-6.0); HEMATOCRIT 28.6 % (34.2-44.1); HEMOGLOBIN 9.6 g/dL (12.0-16.0); LYMPHOCYTES # (AUTO) 0.9 (1.0-3.2); LYMPHOCYTES % 8.9 % (18.0-39.1); MEAN CORPUSCULAR HEMOGLOBIN 32.3 pg (28-32); MEAN CORPUSCULAR HGB CONC 33.6 g/dL (31-35); MEAN CORPUSCULAR VOLUME 96.3 fL (81-99); MONOCYTES # (AUTO) 0.6 (0.2-0.8); MONOCYTES % 5.8 % (4.4-11.3); NEUTROPHILS # (AUTO) 8.3 (2.1-6.9); NEUTROPHILS % 84.4 % (38.7-80.0); PLATELET COUNT 296 x10e3/uL (140-360); RED BLOOD COUNT 2.97 x10e6/uL (3.6-5.1); RED CELL DISTRIBUTION WIDTH 14.8 % (11.7-14.4)
[2018-07-26 19:30] LABS: CALCIUM 7.6 mg/dL (8.4-10.2); CREATININE, SERUM 1.28 mg/dL (0.57-1.11)
--- NOTE | 2018-07-26 20:00 | NUR ---
INITIAL ASSESSMENT COMPLETE, PT BACK FROM SURGERY, VS STABLE, PT IN PAIN TO RIGHT SHOULDER, ARM IN A SLING, DRESSING INTACT WITHOUT DRAINAGE, PICC LINE REMOVED, ART LINE REMOVED IN SURGERY, PRESSURE DRESSING TO LEFT WRIST, IV TO LEFT HAND INFUSING, REPORT GIVEN BY BRINA, LAB CALLED BLOOD SUGAR AT 404, RECHECK AT BEDSIDE IS 398, DR BAUER, RASH TO GROIN PRESENT, NO CLINE, FAMILY AT BEDSIDE, PT IS ALERT, CALL LIGHT IN REACH
[2018-07-26] MEDS ORDERED: INSULIN REGULAR, HUMAN 100 UNIT/1 ML 3ML VIAL SQ ONE (20:30)
[2018-07-26] MEDS: ATORVASTATIN 20 MG TAB PO SCH (20:50)
[2018-07-26] MEDS: CEFAZOLIN SOD 2 GM/D5W 50ML 50 ML IV SCH (21:54)
[2018-07-26] MEDS ORDERED: CEFAZOLIN SOD 1 GM VIAL IV SCH (22:00)
--- NOTE | 2018-07-26 22:11 | Diagnostic Imaging Report ---
EXAM: SHOULDER RIGHT 1 VIEW, AP internal and external rotation INDICATION: Status post reversed total shoulder COMPARISON: Fluoroscopy views July 26, 2018 and right shoulder views July 22, 2018 FINDINGS: see impression IMPRESSION: Right shoulder arthroplasty without evidence of dislocation on AP view. No new fractures. Signed by: Dr. Marcy Medrano M.D. on 07/26/2018 10:08 PM
[2018-07-27] VITALS (8 sets, daily range): BP systolic 90–193; BP diastolic 52–57
[2018-07-27] MEDS ORDERED: SODIUM CHLORIDE 0.9% 250ML 250 ML ONE (05:04)
--- NOTE | 2018-07-27 05:47 | NUR ---
PT AWAKE, IV INTACT, PAIN NOTED TO RIGHT SHOULDER, MEDS GIVEN, ARM IN SLING, ABLE TO MOVE FINGERS, DRAIN COLLECTION BLOOD, FAMILY AT BEDSIDE, CALL LIGHT IN REACH, VS STABLE, NO DISTRESS NOTED
[2018-07-27 06:00] LABS: BASOPHILS % 0.2 % (0.0-1.0); EOSINOPHILS % 0.1 % (0.0-6.0); HEMATOCRIT 26.4 % (34.2-44.1); HEMOGLOBIN 8.7 g/dL (12.0-16.0); LYMPHOCYTES # (AUTO) 1.5 (1.0-3.2); LYMPHOCYTES % 15.9 % (18.0-39.1); MEAN CORPUSCULAR HEMOGLOBIN 31.4 pg (28-32); MEAN CORPUSCULAR VOLUME 95.3 fL (81-99); MONOCYTES % 10.1 % (4.4-11.3); NEUTROPHILS # (AUTO) 6.9 (2.1-6.9); NEUTROPHILS % 73.2 % (38.7-80.0); PLATELET COUNT 292 x10e3/uL (140-360); RED BLOOD COUNT 2.77 x10e6/uL (3.6-5.1); RED CELL DISTRIBUTION WIDTH 15.8 % (11.7-14.4)
[2018-07-27] MEDS: LEVOTHYROXINE SODIUM 50 MCG TAB PO SCH (06:00)
[2018-07-27] MEDS: CEFAZOLIN SOD 2 GM/D5W 50ML 50 ML IV SCH ×3 (06:00→21:10)
[2018-07-27 06:29] LABS: ALBUMIN 2.3 g/dL (3.5-5.0); ALBUMIN/GLOBULIN RATIO 0.7 (0.8-2.0); ANION GAP 11.9 mmol/L (8-16); CALCIUM 7.8 mg/dL (8.4-10.2); CREATININE, SERUM 1.24 mg/dL (0.57-1.11); POTASSIUM 3.9 mmol/L (3.5-5.1)
--- NOTE | 2018-07-27 07:27 | NUR ---
pt resting in bed, no c/o pain or s/s distress. will continue to monitor.
[2018-07-27] MEDS: INSULIN REGULAR, HUMAN 100 UNIT/1 ML 3ML VIAL SQ SCH ×4 (07:59→20:06)
[2018-07-27] MEDS: RANOLAZINE 500 MG TABSR PO SCH ×2 (08:09→17:26)
[2018-07-27] MEDS: MYBETRIQ 50MG PO SCH (08:10)
[2018-07-27] MEDS: ONDANSETRON HCL INJ 2MG/ML 2ML 2 MG/ML VIAL IV PRN (08:10)
[2018-07-27] MEDS: PANTOPRAZOLE SOD 40 MG TABEC PO SCH (08:10)
[2018-07-27] MEDS: CEFTRIAXONE SOD 1 GM/NS 50 ML 50 ML IV SCH (08:10)
[2018-07-27] MEDS: ASPIRIN 81 MG CHEW TAB PO SCH (08:10)
[2018-07-27] MEDS: HYDROMORPHONE 2MG/ML 2 MG/ML ML IV PRN ×2 (08:10→19:57)
[2018-07-27] MEDS: LORATADINE 10 MG TAB PO SCH (08:10)
[2018-07-27] MEDS: MONTELUKAST SODIUM 10 MG TAB PO SCH (08:10)
[2018-07-27] MEDS: CLOPIDOGREL BISULFATE 75 MG TAB PO SCH (08:10)
[2018-07-27] MEDS: NYSTATIN 15 GM POWDER UD BTL TOP SCH (08:11)
[2018-07-27] MEDS: ESCITALOPRAM OXALATE 10 MG TAB PO SCH (08:11)
[2018-07-27] MEDS: PREDNISOLONE ACETATE 1% OPTH SUSP 5 ML BTL OP SCH (08:34)
[2018-07-27] MEDS: FUROSEMIDE 40 MG TAB PO SCH (08:34)
--- NOTE | 2018-07-27 09:17 | NUR ---
PROGRESS NOTE - ORTHOPEDICS Patient seen & examined resting comfortably at bedside with in the room. No acute events overnight. Patient feeling fatigued and has pain that improves with analgesics T 96.5, HR 125, RR 20, BP 118/54, O2 96% NAD, Somnolent Right Shoulder - In Immobilizer, Dressing - clean, dry and intact, drain in place Motor: + AIN, PIN, Radial, Median, Ulnar Sensation grossly intact Pulse + Radial, + capillary refill Compartments soft Hgb 8.7 Hct 26.4 Post op Xrays demonstrate hardware in adequate position 67 year old F s/p Right Reverse Total Shoulder Arthroplasty and Biceps Tenodesis POD #1 Continue analgesics PRN DVT Prophylaxis/Anticoagulation as per medicine, okay to resume Plavix PT - Non-weight bearing RUE, No ER past 0, May start FF & Abduction, May do AROM of Elbow, Wrist &Digits Continue to follow drain, plan to DC drain when drain output decreases Continue post op antibiotics while drain is in place Continue antibiotics for UTI Corrine Ivory, DO [facility].
[2018-07-27] MEDS ORDERED: HYDROMORPHONE 1MG/1ML INJ IV PRN (09:45)
--- NOTE | 2018-07-27 10:11 | NUR ---
rounded with pt, discussed SNF with pt and spouse, PT now on unit with pt
--- NOTE | 2018-07-27 11:12 | Progress Note ---
DATE: July 27, 2018 MEDICINE PROGRESS NOTE SUBJECTIVE: Patient is status post ORIF of the right humerus. Patient is doing well today with no other complaints. Pain is well controlled. She does have a drain on that right humerus. I have discussed with them about senior care. Does not seem they understand, does not seem that they are interested or entertaining the idea. VITAL SIGNS: Temperature 96.5, pulse 125, respiratory rate is 20, blood pressure is 118/54, pulse ox 96% on room air. LAB FINDINGS: White count 9.4, hemoglobin 8.7, hematocrit 26, platelets of 292. Coagulation: PT 14, INR 1, PTT 29.7. Chemistries: sodium 137, potassium 3.9, chloride 102, bicarb 27, anion gap , BUN is 25, creatinine is 1.2, glucose is 241. Urinalysis negative. MICROBIOLOGY: None. PHYSICAL EXAMINATION GENERAL: Not in acute distress, alert and oriented x3. Cooperative on examination. HEENT: Head is normocephalic, atraumatic. Eyes: Pupils equal, round, and reactive to light bilaterally. Extraocular movements intact bilaterally. Throat; no evidence of any erythema or exudates in the posterior pharynx. Has poor dentition. NECK: Supple with good range of motion. PULMONARY: Clear to auscultation bilaterally. No wheezing, no rales, no rhonchi, no crackles appreciated. CARDIOVASCULAR: Positive S1 and S2. No murmurs, rubs, or gallops appreciated. ABDOMEN: Soft, nondistended, nontender to palpation. Bowel sounds present. MUSCULOSKELETAL: Strength is 5/5 throughout. No evidence of any musculoskeletal deficit on examination. No weakness appreciated. NEUROLOGICAL: Cranial nerves II through XII are grossly intact. No evidence of any neurological deficits on exam. SKIN: Intact. Warm to touch. Good cap refill. PSYCHIATRIC: Normal affect and mood. EXTREMITIES: No edema. Good range of motion throughout. IMPRESSIONS 1. Right humeral neck fracture secondary to mechanical fall, now status post humeral open reduction internal fixation performed on 07/26/2018. 2. Type 2 diabetes. 3. Coronary artery disease. 4. Hypothyroidism. 5. History of acid reflux. 6. Chronic hypotension. 7. Sinus tachycardia. PLAN: At this time, she is status post ORIF of the right humerus, postop day number 1. She is doing well with no complaints. I had a long discussion about senior care facility in which the family seemed not to understand or really want to go to senior care. I advised them that that is a good option for her to learn how to get up, transfer, move around due to her recent surgery. We will continue with insulin sliding scale, Accu-Cheks, A1c. We are going to resume same home medications today. Patient still has a drain in the right humerus. Put on Lovenox for DVT prophylaxis. Get a.m. labs. In addition to a sinus tachycardia, I already added metoprolol 25 mg twice daily as well. Job#: [id number] MIKI
[2018-07-27] MEDS: FAMOTIDINE 20 MG TAB PO SCH (12:00)
--- NOTE | 2018-07-27 14:13 | NUR ---
CASE MANAGEMENT INITIAL ASSESSMENT Junior Architect to bedside to discuss plan of care with patient/family. CM/SW role and care transitions discussed. Anticipated discharge plan discussed along with duration of care. CM discussed patients right to make decisions in care. CM/SW work hours given. Patient lives: PATIENT LIVES WITH IN [address] [place] [address] Admit/Transfer: ED POA/Emergency contact: SHEILA COBB [phone] Current/Previous Home Health: NONE AT THIS TIME PCP/Follow-up Care: DR. LNIN Current/Previous DME: WHEELCHAIR, ROLLING WALKER, SHOWER CHAIR Other Services: NONE AT THIS TIME Employment Status: UNEMPLOYED Areas of Concerns: MOBILITY Referral Needs: HOME HEALTH Education Needs: NONE AT THIS TIME IMM/WOLF given and signed (if applicable): IMM Goal for discharge: GOAL IS TO RETURN HOME WITH NO NEEDS BUT IF SNF OR HOME HEALTH IS NEEDED PATIENT AND PATIENT FAMILY WILL GO. CM left business card at the bedside with contact information. Name and number was also written on the patients whiteboard. Patient verbalized understanding of discussion. CM will follow-up with ongoing discharge and transition of care needs. Addendum: 07/27/18 at 1420 by Juana Salcedo CM LATE ENTRY. ASSESSMENT DONE SAME DAY IMM GIVEN
[2018-07-27] MEDS: METOPROLOL TARTRATE 25 MG TAB PO SCH (17:00)
[2018-07-27] MEDS ORDERED: SODIUM CHLORIDE 0.9% 1000ML 500 ML IV SCH (17:15)
[2018-07-27] MEDS: ENOXAPARIN SOD INJ 40 MG/0.4 ML SYR SC SCH (17:26)
--- NOTE | 2018-07-27 17:39 | NUR ---
MD was notified of pt hr/bp, placed on tele and ekg done. pt asymptomatic. per tele/ekg pt is ST with BBB. notified MD. per MD, hold metoprolol only and give bolus
--- NOTE | 2018-07-27 18:45 | NUR ---
MD aware of ekg results. wants update of abnormal vs after bolus finished
--- NOTE | 2018-07-27 19:00 | NUR ---
Received patient awake on bed, with ongoing NS bolus, immobilizer to the right shoulder, Hemovac in place. Call light within reached, advised to call for assistance when needed. Bed in low position and locked, bed alarm on. Will continue to monitor
[2018-07-27] MEDS: ATORVASTATIN 20 MG TAB PO SCH (19:58)
--- NOTE | 2018-07-27 20:47 | NUR ---
paged Dr. Gray to update re pts VS after NS bolus, left a message, awaiting call back
--- NOTE | 2018-07-27 20:53 | NUR ---
Dr. Gray updated with pt's latest VS with orders
[2018-07-27] MEDS ORDERED: HYDROCODONE/APAP 5MG-325MG TAB PO PRN (21:00)
[2018-07-28] VITALS (7 sets, daily range): BP systolic 96–109; BP diastolic 46–55
[2018-07-28] MEDS: CEFAZOLIN SOD 2 GM/D5W 50ML 50 ML IV SCH ×2 (05:38→16:56)
[2018-07-28] MEDS: LEVOTHYROXINE SODIUM 50 MCG TAB PO SCH (05:38)
[2018-07-28] MEDS: HYDROMORPHONE 2MG/ML 2 MG/ML ML IV PRN (05:38)
[2018-07-28 06:16] LABS: BASOPHILS % 0.3 % (0.0-1.0); EOSINOPHILS # (AUTO) 0.4 (0.0-0.4); EOSINOPHILS % 4.8 % (0.0-6.0); HEMOGLOBIN 7.2 g/dL (12.0-16.0); LYMPHOCYTES # (AUTO) 1.7 (1.0-3.2); LYMPHOCYTES % 23.6 % (18.0-39.1); MEAN CORPUSCULAR HEMOGLOBIN 32.3 pg (28-32); MEAN CORPUSCULAR HGB CONC 32.9 g/dL (31-35); MEAN CORPUSCULAR VOLUME 98.2 fL (81-99); MONOCYTES # (AUTO) 0.9 (0.2-0.8); NEUTROPHILS # (AUTO) 4.3 (2.1-6.9); NEUTROPHILS % 58.8 % (38.7-80.0); PLATELET COUNT 238 x10e3/uL (140-360); RED BLOOD COUNT 2.23 x10e6/uL (3.6-5.1); RED CELL DISTRIBUTION WIDTH 15.4 % (11.7-14.4)
[2018-07-28 06:37] LABS: HEMATOCRIT 21.9 % (34.2-44.1)
[2018-07-28 06:39] LABS: BLOOD UREA NITROGEN 22 mg/dL (7-26); CARBON DIOXIDE 28 mmol/L (22-29); CHLORIDE 100 mmol/L (98-107); CREATININE, SERUM 0.83 mg/dL (0.57-1.11); SODIUM 134 mmol/L (136-145)
[2018-07-28 06:40] LABS: ALANINE AMINOTRANSFERASE 13 IU/L (0-55); ALBUMIN 1.9 g/dL (3.5-5.0); ALBUMIN/GLOBULIN RATIO 0.6 (0.8-2.0); ALKALINE PHOSPHATASE 91 IU/L (40-150); BUN/CREATININE RATIO 27 (6-25); CALCIUM 7.3 mg/dL (8.4-10.2); EST GLOMERULAR FILTRATION RATE > 60 ML/MIN (60-); GLUCOSE 146 mg/dL (74-118)
--- NOTE | 2018-07-28 07:15 | NUR ---
PAGED MD AGUILERA REGARDING LOW HBG OF 7.2. LEFT VOICEMAIL. AWAITING FOR CALL BACK
--- NOTE | 2018-07-28 07:24 | NUR ---
SPOKE WITH MD AGUILERA. ORDERED TYPE AND CROSS AND 2 UNITS OF BLOOD AT THIS TIME ORDERS RECEIVED
[2018-07-28] MEDS ORDERED: SODIUM CHLORIDE 0.9% 250ML 250 ML IV ONE (07:30)
[2018-07-28] MEDS: INSULIN REGULAR, HUMAN 100 UNIT/1 ML 3ML VIAL SQ SCH ×5 (08:42→21:34)
[2018-07-28] MEDS: FUROSEMIDE 40 MG TAB PO SCH (08:43)
[2018-07-28] MEDS: LORATADINE 10 MG TAB PO SCH (08:43)
[2018-07-28] MEDS: CEFTRIAXONE SOD 1 GM/NS 50 ML 50 ML IV SCH (08:43)
[2018-07-28] MEDS: PREDNISOLONE ACETATE 1% OPTH SUSP 5 ML BTL OP SCH (08:43)
[2018-07-28] MEDS: ESCITALOPRAM OXALATE 10 MG TAB PO SCH (08:43)
[2018-07-28] MEDS: ASPIRIN 81 MG CHEW TAB PO SCH ×2 (08:44→09:00)
[2018-07-28] MEDS: MONTELUKAST SODIUM 10 MG TAB PO SCH (08:44)
[2018-07-28] MEDS: FAMOTIDINE 20 MG TAB PO SCH (08:44)
[2018-07-28] MEDS: PANTOPRAZOLE SOD 40 MG TABEC PO SCH (08:44)
[2018-07-28] MEDS: MYBETRIQ 50MG PO SCH (08:44)
[2018-07-28] MEDS: RANOLAZINE 500 MG TABSR PO SCH ×2 (08:44→16:27)
[2018-07-28] MEDS: METOPROLOL TARTRATE 25 MG TAB PO SCH ×2 (08:44→16:27)
--- NOTE | 2018-07-28 08:45 | NUR ---
pt signed consent for blood transfusion at this time
[2018-07-28] MEDS: CLOPIDOGREL BISULFATE 75 MG TAB PO SCH (09:00)
[2018-07-28] MEDS ORDERED: FENTANYL 25 MCG/HR PATCH TOP SCH (10:00)
[2018-07-28] MEDS ORDERED: HYDROCODONE/APAP 10MG-325MG TAB PO PRN ×2 (10:00→10:45)
--- NOTE | 2018-07-28 10:03 | NUR ---
spoke with md woo. new orders for pain med received
--- NOTE | 2018-07-28 10:05 | Progress Note ---
DATE: July 28, 2018 MEDICINE PROGRESS NOTE SUBJECTIVE: Patient is doing well today with no complaints. She is complaining of right shoulder and arm pain. Her hemoglobin has dropped as well. She says that PT is now working with her to get her up out of the bed. OBJECTIVE VITAL SIGNS: Temperature is 97, pulse 100, respiratory rate 18, blood pressure is 100/55, pulse ox 96% on room air. LAB FINDINGS: White count 7.3, hemoglobin 7.2, hematocrit 22, platelets of 238. Coagulation: PT 14, INR 1, PTT 29.7. Chemistries: Sodium 134, potassium 4, chloride 100, bicarb 28, anion gap 10, BUN 22, creatinine 0.83, glucose 146. Calcium 7.3. LFTs were normal. Albumin was 1.9. MICROBIOLOGY: None. IMAGING STUDIES: None. PHYSICAL EXAMINATION GENERAL: Not in acute distress, alert and oriented x3. Cooperative on examination. HEENT: Head is normocephalic, atraumatic. Eyes: Pupils are equal, round, and reactive to light bilaterally. Extraocular movements intact bilaterally. NECK: Supple with good range of motion. THROAT: No evidence of erythema or exudates in the posterior pharynx. Has poor dentition. PULMONARY: Clear to auscultation bilaterally. No wheezing, no rales, no rhonchi, no crackles appreciated. CARDIOVASCULAR: Positive S1 and S2. No murmurs, rubs, or gallops appreciated. ABDOMEN: Soft, nondistended, nontender to palpation. Bowel sounds present. MUSCULOSKELETAL: Strength is 5/5 throughout. No evidence of any musculoskeletal deficit on examination. No weakness appreciated. NEUROLOGICAL: Cranial nerves II through XII are grossly intact. No evidence of any neurological deficits on exam. SKIN: Intact. Warm to touch. Good cap refill. PSYCHIATRIC: Normal affect and mood. EXTREMITIES: No edema. Good range of motion throughout. IMPRESSION 1. Right humeral neck fracture secondary to mechanical fall, now status post humeral open reduction and internal fixation performed on 07/26/2018. 2. Postoperative anemia. 3. Type-2 diabetes. 4. Coronary artery disease. 5. Hypothyroidism. 6. History of acid reflux. 7. Chronic hypotension. 8. Sinus tachycardia. PLAN: At this time, the patient will receive 2 units of packed RBC transfusion. Discussed with nursing staff. Get a.m. labs. Continue with insulin sliding scale. This is postop day #2. Plan is to go to the intermediate facility. Continue with same plan of care. In relation to her heart rate, it is much improved. Will continue with metoprolol. Continue the operative drain in the right humerus. It is also draining very minimally. Once pulled by the orthopedist, we will go ahead and transfer to the intermediate facility. Pain management per the email production consultant for pain control. Job#: [id number]
--- NOTE | 2018-07-28 10:40 | NUR ---
ASSISTED MD GLEN PATHAK REMOVAL OF HEMOVAC AT THIS TIME. 4X4 GAUZE AND TEGADERM APPLIED
--- NOTE | 2018-07-28 10:43 | NUR ---
PROGRESS NOTE - ORTHOPEDICS Patient seen and examined resting comfortably at bedside. Patient reports of feeling tired. Denies any numbness, paresthesias or loss of distal motor function. T 97.0%, HR 100, RR 18, BP 100/55, O2 96% Right Shoulder - Drain in place, Aquacell dressing clean, dry and intact, In immobilizer Motor: + AIN, PIN, Radial, Median, Ulnar Sensation grossly intact Pulses + Radial, + capillary refill Compartments soft HMV - 20 cc output H/H 7.2/21.9 67 year old F s/p Right Reverse Total Shoulder Arthroplasty POD#2 Analgesics PRN DVT Prophylaxis Physical Therapy: NWB RUE, PROM - May ER to 0, May forward flex and abduct Okay to transfuse as per medicine Follow up labs Drain discontinued, new dressing applied over drain site Orthopedically stable for discharge once H/H stabilize. Follow up in office within 2 weeks May discontinue Ancef antibiotics after next dose Thank you for allowing me to care for your patient. Please consult PRN. DO D[facility]
[2018-07-28] MEDS ORDERED: HYDROMORPHONE 2MG/ML 2 MG/ML ML IV PRN ×2 (10:45→14:00)
--- NOTE | 2018-07-28 10:52 | NUR ---
1ST UNIT OF BLOOD JUST STARTED. VERIFIED BLOOD AT BEDSIDE WITH RANJIT DIMAS. WILL MONITOR TRANSFUSION CLOSELY AT THIS TIME
[2018-07-28] MEDS: LIDOCAINE 5% PATCH TP SCH (12:33)
--- NOTE | 2018-07-28 12:40 | NUR ---
This nurse offered to feed patient at this time. Patient informed nurse she was not hungry at this time.
--- NOTE | 2018-07-28 12:50 | NUR ---
1 ST UNIT OF BLOOD COMPLETE . NO A/R NOTED. PT IS NOW EATING LUNCH WITH ASSISTANCE OF TECH.
[2018-07-28] MEDS ORDERED: SODIUM CHLORIDE 0.9% 250ML 250 ML ONE (13:37)
--- NOTE | 2018-07-28 13:55 | NUR ---
2nd unit of blood started . verified with ron lynn at bedside. will monitor pt closely
[2018-07-28] MEDS: NYSTATIN 15 GM POWDER UD BTL TOP SCH (14:03)
--- NOTE | 2018-07-28 14:21 | NUR ---
spoke with dhu regarding pt low bp of 86/45 wit hr of 92. while transfusing blood , new orders for midodrine given.
[2018-07-28] MEDS ORDERED: MIDODRINE HCL 5 MG TABLET PO ONE (14:30)
--- NOTE | 2018-07-28 14:34 | NUR ---
GIVEN 10 MG OF MIDODRINE ORAL AT THIS TIME FOR A BP OF 94/44. PT [id number] WILL MONITOR CLOSELY
--- NOTE | 2018-07-28 15:28 | NUR ---
Nutrition Intervention Note RD Recommendation(s) for Physician: -Continue ADA diet as ordered -Rec Glucerna BID to promote protein-calorie intake -Provide feeding assistance as requested -Encourage PO and hydration Plan of Care: RD following, monitoring for tolerance and adequacy, ONS rec Nutrition reason for involvement: LOS RD Assessment 07/28 - Chart reviewed. 67 year old F s/p right reverse total shoulder arthroplasty POD#2. Visited pt in the room. on bedside to provide hx as pt was sleepy. Per , pt has had poor appetite x 15 days. However, he doesnt think his has lost any weight. No GI complains noted. LBM- 07/27. No chewing difficulty noted. Per , pt has some issue swallowing dry foods but this is not new. doesnt think pt need diet texture modification but requests for gravy with all meats. also request for feeding assistance as pt cant move her arm due to pain. Will continue to monitor and follow. Principal Problems/Diagnoses: 1. Right humeral neck fracture secondary to mechanical fall, now status post humeral open reduction and internal fixation performed on 07/26/2018. 2. Postoperative anemia. PMH: hypothyroidism, CAD, hypertension, acid reflux, DM GI: abdomen soft, non-tender, LBM 07/27 Skin: dry and intact left shoulder incision Labs: (07/28) Na 134 L, Glucose 251 H, Ca 7.3 L Meds: insulin, pepcid, protonix, prednisone, lasix Ht: 62in Wt: 165.06lb BMI: 30.2kg/m2 IBW: 110lb Malnutrition Evaluation (07/28) The patient does not meet criteria for a specified degree of malnutrition at this time. Will re-evaluate at follow-up as appropriate. Nutrition Prescription (Diet Order): ADA diet Diet Adequacy: Not meeting calorie needs, Not meeting protein needs Diet Education Needs Assessment: Diet education not indicated. Nutrition Care Level: low Nutrition Diagnosis: Inadequate oral intake related to acute illness as evidenced by poor appetite and PO intake x 15 days. Goal: Patient will meet 75-100% of estimated needs by follow up Progress: N/A Interventions: Carbohydrate-modified diet, Commercial beverage Monitoring/Evaluation: Total energy intake, Total protein intake, Modified diet, Liquid supplement, Weight change Signed: Mary Meredith, , RD, LD
[2018-07-28] MEDS ORDERED: MIDODRINE 2.5 MG TAB PO SCH (16:00)
[2018-07-28] MEDS: MIDODRINE HCL 5 MG TABLET PO SCH (16:56)
--- NOTE | 2018-07-28 16:59 | Progress Note ---
DATE: CARDIOLOGY PROGRESS NOTE SUBJECTIVE: Patient is mildly lethargic. Denies any chest pain. Reports shoulder pain. OBJECTIVE VITAL SIGNS: Temperature is 97.3. Heart rate is 93. Respirations are 18. Blood pressure is 100/55. GENERAL: Patient appears lethargic, falling asleep upon questioning, no apparent distress. CARDIOVASCULAR: Regular rate and rhythm. LUNGS: Clear to auscultation. ABDOMEN: Soft, nontender. EXTREMITIES: No edema. VASCULAR: 2+ pulses. SKIN: Warm, dry, and intact. CARDIOVASCULAR MEDICATIONS: Reviewed. LABORATORY DATA: Reviewed. Hemoglobin 7.2, creatinine 0.83, potassium 4. TELEMETRY MONITORING: Sinus tachycardia. IMPRESSION 1. Coronary artery disease, status post percutaneous coronary intervention in remote past. 2. Coronary artery disease, status post coronary artery bypass graft surgery. 3. Chronic systolic heart failure. 4. Hypertension. 5. Hyperlipidemia. 6. Sinus tachycardia. RECOMMENDATIONS: Continue beta blockers for rate control. Patient's tachycardia likely driven by anemia and right shoulder pain. Otherwise, continue dual antiplatelet therapy and all other cardiovascular medications. Job#: [id number]
[2018-07-28] MEDS: ENOXAPARIN SOD INJ 40 MG/0.4 ML SYR SC SCH (17:00)
--- NOTE | 2018-07-28 17:14 | NUR ---
PT MENTAL STATUS IS NOW ALTERED. PT APPEARS CONFUSED, STATES SHE DOES NOT KNOW WHERE SHE IS. PT HOWEVER STATES HER NAME. SPOKE TO MD AGUILERA REGARDING CHANGE IN ALERTNESS. MD ORDERED AMONIA AND ABD LEVELS AT THIS TIME. WILL MONITOR CLOSELY. SPOKE TO ABOUT BLOOD THINNERS ON CHART. MD OK TO HOLD MEDICATIONS AT THIS TIME (PLAVIX, ASPIRIN, LOVENOX)
--- NOTE | 2018-07-28 17:30 | NUR ---
SPOKE TO PT AND WHOS AT BEDSIDE REGARDING NEW ORDERS DUE TO PT CONFUSION ASKED IF HAS TIMES OF CONFUSION AT HOME. STATES THIS CONFUSION STARTED AFTER PROCEDURE OF RIGHT SHOULDER WAS PREFORMED. BELIEVES THIS IS FROM ANESTHESIA. AND POSSIBLY FENTANYL PATCH THAT WAS PLACED TODAY FENTANYL PATCH REMOVED AT THIS TIME BLOOD WORK BEING DRAWN. WILL AWAIT ON RESULTS PT IS RESTING COMFORTABLY, DENIES PAIN , WILL CONTINUE TO CARE
[2018-07-28 17:45] LABS: ABG HCO3 29 mmol/L (23-28); ABG PCO2 37 mmHg (41-51); ABG PO2 85 mmHg (80-105)
[2018-07-28 20:28] LABS: HEMATOCRIT 28.3 % (34.2-44.1); HEMOGLOBIN 9.6 g/dL (12.0-16.0)
[2018-07-28] MEDS: ATORVASTATIN 20 MG TAB PO SCH (21:33)
[2018-07-29] VITALS (8 sets, daily range): BP systolic 11–111; BP diastolic 46–56
[2018-07-29 06:14] LABS: BASOPHILS % 0.3 % (0.0-1.0); EOSINOPHILS # (AUTO) 0.4 (0.0-0.4); EOSINOPHILS % 5.9 % (0.0-6.0); HEMATOCRIT 27.6 % (34.2-44.1); HEMOGLOBIN 9.5 g/dL (12.0-16.0); LYMPHOCYTES # (AUTO) 1.9 (1.0-3.2); LYMPHOCYTES % 25.4 % (18.0-39.1); MEAN CORPUSCULAR HEMOGLOBIN 31.6 pg (28-32); MEAN CORPUSCULAR HGB CONC 34.4 g/dL (31-35); MEAN CORPUSCULAR VOLUME 91.7 fL (81-99); MONOCYTES # (AUTO) 0.9 (0.2-0.8); MONOCYTES % 11.5 % (4.4-11.3); NEUTROPHILS # (AUTO) 4.2 (2.1-6.9); NEUTROPHILS % 55.8 % (38.7-80.0); PLATELET COUNT 236 x10e3/uL (140-360); RED BLOOD COUNT 3.01 x10e6/uL (3.6-5.1); RED CELL DISTRIBUTION WIDTH 17.2 % (11.7-14.4)
[2018-07-29] MEDS: LEVOTHYROXINE SODIUM 50 MCG TAB PO SCH (06:27)
[2018-07-29 06:36] LABS: ALANINE AMINOTRANSFERASE 9 IU/L (0-55); ALBUMIN 1.9 g/dL (3.5-5.0); ALBUMIN/GLOBULIN RATIO 0.6 (0.8-2.0); ALKALINE PHOSPHATASE 89 IU/L (40-150); ANION GAP 10.2 mmol/L (8-16); BLOOD UREA NITROGEN 16 mg/dL (7-26); BUN/CREATININE RATIO 20 (6-25); CARBON DIOXIDE 30 mmol/L (22-29); CHLORIDE 98 mmol/L (98-107); CREATININE, SERUM 0.81 mg/dL (0.57-1.11); EST GLOMERULAR FILTRATION RATE > 60 ML/MIN (60-); GLUCOSE 135 mg/dL (74-118); POTASSIUM 3.2 mmol/L (3.5-5.1); SODIUM 135 mmol/L (136-145)
--- NOTE | 2018-07-29 06:42 | NUR ---
PATIENT RESTING IN BED WITH HOB SLIGHTLY ELEVATED, SLING TO HER RIGHT ARM REMAIN INTACT. INCONTINENT CARE GIVEN AND DIAPER CHANGED AND PLACED ON HER BACK. SCD REMAIN INTACT. CALL LIGHT IN REACH. WILL CONTINUE TO MONITOR.
[2018-07-29] MEDS: INSULIN REGULAR, HUMAN 100 UNIT/1 ML 3ML VIAL SQ SCH ×4 (07:30→20:48)
[2018-07-29] MEDS: ASPIRIN 81 MG CHEW TAB PO SCH (08:49)
[2018-07-29] MEDS: MIDODRINE HCL 5 MG TABLET PO SCH ×3 (08:49→16:30)
[2018-07-29] MEDS: PANTOPRAZOLE SOD 40 MG TABEC PO SCH (08:49)
[2018-07-29] MEDS: PREDNISOLONE ACETATE 1% OPTH SUSP 5 ML BTL OP SCH (08:49)
[2018-07-29] MEDS: LORATADINE 10 MG TAB PO SCH (08:49)
[2018-07-29] MEDS: RANOLAZINE 500 MG TABSR PO SCH ×2 (08:50→16:04)
[2018-07-29] MEDS: FUROSEMIDE 40 MG TAB PO SCH (08:50)
[2018-07-29] MEDS: MYBETRIQ 50MG PO SCH (08:50)
[2018-07-29] MEDS: ESCITALOPRAM OXALATE 10 MG TAB PO SCH (08:50)
[2018-07-29] MEDS: MONTELUKAST SODIUM 10 MG TAB PO SCH (08:50)
[2018-07-29] MEDS: CEFTRIAXONE SOD 1 GM/NS 50 ML 50 ML IV SCH (08:50)
[2018-07-29] MEDS: METOPROLOL TARTRATE 25 MG TAB PO SCH ×2 (08:50→16:04)
[2018-07-29] MEDS: NYSTATIN 15 GM POWDER UD BTL TOP SCH (08:50)
[2018-07-29] MEDS: LIDOCAINE 5% PATCH TP SCH (08:50)
[2018-07-29] MEDS ORDERED: LIDOCAINE 5% PATCH TP SCH (09:00)
--- NOTE | 2018-07-29 09:02 | NUR ---
PT SIGNED CHOICE FOR [facility]ICAL [facility]ORT FAXED CLINICALS TO [phone], SPOKE WITH MD WHOM STATES THE PATIENT WILL MOST LIKELY DISCHARGE THURSDAY. ALERTED [facility]. WAS TOLD HAVE AUTH TO CALL THURSDAY MORNING FOR ROOM NUMBER.
[2018-07-29] MEDS ORDERED: POTASSIUM CHLORIDE 20 MEQ TAB CR PO STA (10:26)
--- NOTE | 2018-07-29 10:36 | NUR ---
PROGRESS NOTE - ORTHOPEDICS Patient seen and examined resting comfortably in bed. Mentation much improved and pain controlled. Denies any numbness, paresthesias or loss of distal motor function. T 98.8, HR 81, RR 18, BP 93/51, O2 Sat 94% Right Upper Extremity In immobilizer and dressing - clean, dry and intact Motor; AIN, PIN, Radial, Median, Ulnar Sensation grossly intact distally and along axillary regions Pulses + Radial, capillary refill Compartments soft H/H 9.5/27.6 67 year old F s/p Right Total Shoulder Arthroplasty POD #3 Analgesics PRN - Okay with Tramadol if pain controlled and mentation is good DVT Prophylaxis Physical Therapy: NWB RUE, PROM - May ER to 0, May forward flex and abduct Orthopedically stable for discharge. At SNF - Change dressing in 1 week or as needed Follow up in office within 2 weeks DO [facility]
[2018-07-29] MEDS: CLOPIDOGREL BISULFATE 75 MG TAB PO SCH (11:09)
--- NOTE | 2018-07-29 11:21 | NUR ---
SPOKE WITH MD AGUILERA STATES PT WILL BE CLEARED TO GO TOMORROW TO SNF. WILL MONITOR ONE MORE DAY HERE
--- NOTE | 2018-07-29 11:23 | Progress Note ---
DATE: July 29, 2018 MEDICINE PROGRESS NOTE SUBJECTIVE: Patient is much more alert today on examination. She was confused after the fentanyl patch was started. She is improving now. She denies any other complaints at this time. She does endorse to me that her blood pressure is always low at home. OBJECTIVE VITAL SIGNS: Temperature is 98.8, pulse 80, respiratory rate 18, blood pressure is 93/51, pulse ox 94% on room air. LAB FINDINGS: White count 7.4, hemoglobin 9.5, hematocrit 27.6, platelets of 236. Coagulation: PT 14, INR 1, PTT 29.7. Chemistries: Sodium 135, potassium 3.2, chloride 98, bicarb 30, BUN 16, creatinine 0.8, glucose 135. Urinalysis was negative. PHYSICAL EXAMINATION GENERAL: Not in acute distress, alert and oriented x3. Cooperative on examination. HEENT: Head is normocephalic, atraumatic. Eyes: Pupils are equal, round, and reactive to light bilaterally. Extraocular movements intact bilaterally. NECK: Supple with good range of motion. THROAT: No evidence of erythema or exudates in the posterior pharynx. Has poor dentition. PULMONARY: Clear to auscultation bilaterally. No wheezing, no rales, no rhonchi, no crackles appreciated. CARDIOVASCULAR: Positive S1 and S2. No murmurs, rubs, or gallops appreciated. ABDOMEN: Soft, nondistended, nontender to palpation. Bowel sounds present. MUSCULOSKELETAL: Strength is 5/5 throughout. No evidence of any musculoskeletal deficit on examination. No weakness appreciated. NEUROLOGICAL: Cranial nerves II through XII are grossly intact. No evidence of any neurological deficits on exam. SKIN: Intact. Warm to touch. Good cap refill. PSYCHIATRIC: Normal affect and mood. EXTREMITIES: No edema. Good range of motion throughout. IMPRESSION 1. Right humeral neck fracture secondary to mechanical fall, now status post humeral open reduction and internal fixation performed on 07/26/2018. 2. Postoperative anemia. 3. Type-2 diabetes. 4. Coronary artery disease. 5. Hypothyroidism. 6. History of acid reflux. 7. Chronic hypotension. 8. Sinus tachycardia. PLAN: At this time, hemoglobin is stable. She is not confused anymore. Likely due to pain medications. We are going to wean down to just tramadol only and lidocaine patches as well. Continue with insulin sliding scale. She has been accepted to longterm, but I want to monitor her in terms of her encephalopathy, though it is now much better, but would like to see how she does 1 more day. If she is much better and with no issues, we will transfer tomorrow to the longterm facility. The pain is well controlled. Job#: [id number]
[2018-07-29] MEDS: FAMOTIDINE 20 MG TAB PO SCH (12:18)
[2018-07-29] MEDS: TRAMADOL HCL 50 MG TAB PO PRN ×2 (14:18→20:50)
[2018-07-29] MEDS: ENOXAPARIN SOD INJ 40 MG/0.4 ML SYR SC SCH (16:31)
[2018-07-29] MEDS: ATORVASTATIN 20 MG TAB PO SCH (20:47)
--- NOTE | 2018-07-29 22:00 | NUR ---
ASSESSMENT DONE.NO RESP.DISTRESS. PAIN VOICED 01/19.MEDICATION GIVEN.FAMILY MEMBER AT BED SIDE.SLING TO THE R.ARM PLACED.ENCOURAGED TO DO RIGHT HAND EXERCISE.REPOSITIONED.DIAPER CHANGED. BED LOCKED AND IN LOWEST POSITION.PHONE AND CALL LIGHT WITHIN REACH.INSTRUCTED TO CALL FOR ASISTANCE NEEDED.
[2018-07-30 04:00] VITALS: BP 113/52
[2018-07-30] MEDS: TRAMADOL HCL 50 MG TAB PO PRN (04:57)
[2018-07-30] MEDS: LEVOTHYROXINE SODIUM 50 MCG TAB PO SCH (05:30)
[2018-07-30 05:46] LABS: BASOPHILS % 0.4 % (0.0-1.0); EOSINOPHILS # (AUTO) 0.4 (0.0-0.4); EOSINOPHILS % 4.9 % (0.0-6.0); HEMATOCRIT 29.5 % (34.2-44.1); HEMOGLOBIN 9.7 g/dL (12.0-16.0); LYMPHOCYTES # (AUTO) 2.2 (1.0-3.2); LYMPHOCYTES % 29.7 % (18.0-39.1); MEAN CORPUSCULAR HGB CONC 32.9 g/dL (31-35); MEAN CORPUSCULAR VOLUME 94.2 fL (81-99); MONOCYTES # (AUTO) 0.9 (0.2-0.8); MONOCYTES % 12.4 % (4.4-11.3); NEUTROPHILS # (AUTO) 3.9 (2.1-6.9); NEUTROPHILS % 51.9 % (38.7-80.0); PLATELET COUNT 258 x10e3/uL (140-360); RED BLOOD COUNT 3.13 x10e6/uL (3.6-5.1); RED CELL DISTRIBUTION WIDTH 16.8 % (11.7-14.4)
[2018-07-30 06:04] LABS: ALANINE AMINOTRANSFERASE 10 IU/L (0-55); ALBUMIN 1.9 g/dL (3.5-5.0); ALBUMIN/GLOBULIN RATIO 0.5 (0.8-2.0); ALKALINE PHOSPHATASE 93 IU/L (40-150); ANION GAP 9.5 mmol/L (8-16); BLOOD UREA NITROGEN 13 mg/dL (7-26); BUN/CREATININE RATIO 17 (6-25); CALCIUM 8.2 mg/dL (8.4-10.2); CARBON DIOXIDE 32 mmol/L (22-29); CHLORIDE 100 mmol/L (98-107); CREATININE, SERUM 0.78 mg/dL (0.57-1.11); EST GLOMERULAR FILTRATION RATE > 60 ML/MIN (60-); GLUCOSE 126 mg/dL (74-118); POTASSIUM 4.5 mmol/L (3.5-5.1); SODIUM 137 mmol/L (136-145)
[2018-07-30] MEDS: LIDOCAINE 5% PATCH TP SCH (07:24)
--- NOTE | 2018-07-30 07:24 | NUR ---
LIDODERM PATCH APPLIED TO THE R.ARM.REPORT GIVEN TO THE ONCOMING RN.WALKING ROUNDS DONE.STABLE CONDITION.
[2018-07-30 08:07] VITALS: BP 110/54
[2018-07-30] MEDS: INSULIN REGULAR, HUMAN 100 UNIT/1 ML 3ML VIAL SQ SCH ×3 (08:30→17:25)
[2018-07-30] MEDS: PANTOPRAZOLE SOD 40 MG TABEC PO SCH (08:30)
--- NOTE | 2018-07-30 08:37 | NUR ---
PT ACCEPTED TO [facility] AREA ROOM [address] TORRES. IMM SIGNED FILED IN CHART., PASRR FILED IN CHART AND PUT IN PACKET AND WITH RTF COMPLETED AND GIVEN TO NURSE.
[2018-07-30] MEDS: NYSTATIN 15 GM POWDER UD BTL TOP SCH (09:00)
[2018-07-30] MEDS: MYBETRIQ 50MG PO SCH (09:00)
[2018-07-30] MEDS: MIDODRINE HCL 5 MG TABLET PO SCH ×3 (09:00→17:00)
[2018-07-30] MEDS ORDERED: RANOLAZINE 500 MG TABSR PO SCH (09:00)
[2018-07-30] MEDS: FUROSEMIDE 40 MG TAB PO SCH (09:00)
[2018-07-30] MEDS: ASPIRIN 81 MG CHEW TAB PO SCH (09:00)
[2018-07-30] MEDS: MONTELUKAST SODIUM 10 MG TAB PO SCH (09:00)
[2018-07-30] MEDS ORDERED: METOPROLOL TARTRATE 25 MG TAB PO SCH (09:00)
[2018-07-30] MEDS: ESCITALOPRAM OXALATE 10 MG TAB PO SCH (09:00)
[2018-07-30] MEDS: CLOPIDOGREL BISULFATE 75 MG TAB PO SCH (09:00)
[2018-07-30] MEDS: LORATADINE 10 MG TAB PO SCH (09:00)
[2018-07-30] MEDS: PREDNISOLONE ACETATE 1% OPTH SUSP 5 ML BTL OP SCH (09:00)
[2018-07-30] MEDS: CEFTRIAXONE SOD 1 GM/NS 50 ML 50 ML IV SCH (09:30)
[2018-07-30 09:35] VITALS: BP 110/54
--- NOTE | 2018-07-30 12:06 | NUR ---
REPORT TO ASHLEY AT [facility], PER CM, PER REQUEST, [facility] WILL COME OPHTHALMIC MEDICAL ASSISTANT AND TRANSPORT PT TO ROOM 112
[2018-07-30 12:08] VITALS: BP 110/62
[2018-07-30] MEDS: FAMOTIDINE 20 MG TAB PO SCH (12:30)
--- NOTE | 2018-07-30 14:00 | NUR ---
PER CM, PT WILL BE TRANSFERRED VIA [facility] DUE TO PT DOES NOT WANT AMBULANCE AND IT WILL BE AROUND 4 PM
--- NOTE | 2018-07-30 14:19 | Discharge Summary ---
FINAL DISCHARGE DIAGNOSES 1. Right humeral neck fracture secondary to mechanical fall, now status post humeral open reduction and internal fixation performed on 07/26/2018 by orthopedics. 2. Postoperative anemia. 3. Type-2 diabetes. 4. Coronary artery disease. 5. Hypothyroidism. 6. Acid reflux. 7. Chronic hypotension. CONSULTANTS: Orthopedics, pain management and cardiology. VITAL SIGNS: Temperature is 97.6, pulse 74, respiratory rate 18, blood pressure 110/54, pulse oxygen 95% on room air. LAB FINDINGS: White count 7.5, hemoglobin 9.7, hematocrit 29.5, platelets 258. Chemistries: Sodium 137, potassium 4.5, chloride 100, bicarb 32, anion gap 9.7, BUN 13, creatinine 0.78, glucose 126. Calcium is 8.2. LFTs are normal. Ammonia level was 71, which is normal in this hospital. Albumin is 1.9. Urinalysis was negative. MICROBIOLOGY: None. IMAGING STUDIES: CT shoulder shows communicated, displaced, right humeral neck fracture. Chest x-ray shows a chronic-appearing left humeral deformity and a new displaced right humeral neck fracture. Shoulder x-ray: Right shoulder arthroplasty without evidence of dislocation in the AP view. No new fracture seen. This is postoperatively. HOSPITAL COURSE: This is a 67-year-old female who had a mechanical fall, landed on her right shoulder, found to have a right humeral neck fracture. The patient was then discharged initially from the ER and followed up with orthopedics. Apparently there were some logistics with insurance, and the patient was then readmitted back to the hospital. The patient underwent status post humeral open reduction and internal fixation procedure on 07/26/2018 by orthopedics. Patient did well postoperatively. She had postoperative anemia requiring blood transfusion. She initially had a MARNIE drain, but it was removed prior to discharge. Her diabetes was well managed and controlled. Pain management was consulted for pain control. Patient had a pain script placed in the chart for discharge. Cardiology was consulted for cardiac clearance for surgery. Patient did well post procedure with no other issues. On discharge, the patient was doing well, back to normal baseline. On the day of discharge, vital signs are stable. Labs were reviewed and stable. Patient was seen and evaluated and examined thoroughly on the date of discharge with no other complaints. The patient verbalized understanding and agrees with plan of care, to follow up as outpatient with the primary care physician in 1 week and orthopedics in 2 weeks' time. MEDICATIONS: See med reconciliation. DISPOSITION: To correction facility. CONDITION: Stable. DIET: Heart healthy. In the event of any worsening symptoms, the patient was advised to come back to the ED for further evaluation. The discharge summary took greater than 35 minutes. SANAZ AGUILERA MD Job#: [id number]
[2018-07-30] MEDS: ENOXAPARIN SOD INJ 40 MG/0.4 ML SYR SC SCH (17:00)
[2018-07-30 17:21] VITALS: BP 107/55
--- NOTE | 2018-07-30 17:26 | NUR ---
[facility] HERE TO NURSING TEACHER PT, FAMILY AT SIDE
== END 2018-07-30 17:34 | DRG 493 ==
LOC: ER 22:15 → ERHOLD 23:31 → UNDOADMIN 07-24 00:04 → ERHOLD 07-24 00:04 → MED/SURG 07-24 00:26
PROVIDERS: ADMIT Internal Medicine; ATTEND Internal Medicine
PROC: 30233N1 Transfusion of Nonautologous Red Blood Cells into Peripheral Vein, Percutaneous Approach (ICD-10-PCS; 2018-07-26)
PROC: 0PSF04Z Reposition Right Humeral Shaft with Internal Fixation Device, Open Approach (ICD-10-PCS; principal; 2018-07-30)
DX: S42.401A Unspecified fracture of lower end of right humerus, initial encounter for closed fracture (principal); D62 Acute posthemorrhagic anemia; I13.0 Hypertensive heart and chronic kidney disease with heart failure and stage 1 through stage 4 chronic kidney disease, or unspecified chronic kidney disease; I50.22 Chronic systolic (congestive) heart failure; I25.10 Atherosclerotic heart disease of native coronary artery without angina pectoris; E03.9 Hypothyroidism, unspecified; E78.5 Hyperlipidemia, unspecified; K21.9 Gastro-esophageal reflux disease without esophagitis; Z95.5 Presence of coronary angioplasty implant and graft; Z95.1 Presence of aortocoronary bypass graft; E11.22 Type 2 diabetes mellitus with diabetic chronic kidney disease; N18.9 Chronic kidney disease, unspecified; Z79.4 Long term (current) use of insulin; I95.89 Other hypotension; J44.9 Chronic obstructive pulmonary disease, unspecified
CPT/HCPCS: 36415; 36600; 71045; 80048; 80053; 81001; 82140; 82805; 82948; 85014; 85018; 85025; 85610; 85730; 86850; 86900; 86920; 93005; 96372; 97139; 99284; J0171; J0690; J0696; J1650; J1885; J2001; J2250; J2370; J2405; J2795; J3370; J7030; J7042; J7050; P9016

== ENCOUNTER 2018-10-12 15:04 | Inpatient (IN) | payer MEDICARE ==
[~2018-10-12] VITALS: Ht 160 cm; Wt 60.4 kg
[~2018-10-12 15:04] MED LIST changes: -PREDNISOLONE ACE5 ML OS; +PREDNISOLONE ACE5 ML OU
--- OUTSIDE RECORDS SUMMARY | 2018-10-12 15:07 | XMS REPORT | Clinical Summary ---
Author Author [facility] Organization [facility] Address Unknown Phone Unavailable Care Team Providers Care Contracting Executive Name Role Phone Quan Ramos MD PCP [...] 2002 COLON CANCER SCREENING 2002 SHINGLES VACCINES (#1) 2002 65+ PNEUMOCOCCAL VACCINE 2017 (1 of 2 - PCV13) PNEUMOCOCCAL 2017 POLYSACCHARIDE VACCINE AGE 65 AND OVER INFLUENZA VACCINE 02/10/2018 Results Not on fileafter 10/11/2017 Insurance Payer Benefit Subscriber ID Type Phone Address Plan / Group [employer] CIGNA xxxxxxxx O [employer] NG O MCR ADV Advance Directives Patient has advance care planning documents on file. For more information, beau portillo contact: Reggie Campos [address] [place] [address]
[2018-10-12] MEDS ORDERED: ACETAMINOPHEN 1000 MG/100 ML IV STA (15:56)
--- NOTE | 2018-10-12 16:30 | Diagnostic Imaging Report ---
Examination: Single AP view of the chest. COMPARISON: Portable chest 07/24/2018 INDICATION: Dehydration, chest pain IMPRESSION: 1. Lines and Tubes: None 2. Lungs are well-inflated. Stable linear opacities in the left midlung, consistent with scarring.. No consolidation or effusion. 3. Cardiomediastinal silhouette is normal. Atherosclerotic calcification of the aortic arch. CABG changes. Pulmonary vasculature is normal. 4. No acute bony abnormalities. Interval right shoulder replacement with prosthetic components in satisfactory alignment in this AP view. Degenerative changes in the left glenohumeral joint. Signed by: Dr. Luis Monroe M.D. on 10/12/2018 4:26 PM
--- NOTE | 2018-10-12 16:40 | Diagnostic Imaging Report ---
Exam: Head CT without contrast History: Weakness, slurred speech, rule out stroke Comparison studies: Head CT 12/13/2017 Technique: Axial images were obtained from the skull base to the vertex. Coronal and sagittal images reconstructed from the axial data. Dose modulation, iterative reconstruction, and/or weight based adjustment of the mA/kV was utilized to reduce the radiation dose to as low as reasonably achievable. Radiation dose: Total DLP: 1042 mGy*cm. Estimated effective dose: DLP x 0.015 Intravenous contrast: None Findings: Scalp: No abnormalities. Bones: No fractures, blastic or lytic lesions. Brain sulci: Mildly prominent. Ventricles: Moderately dilated ventricles, disproportionate to sulcal prominence may be related to degree of central greater peripheral cortical volume loss. Consider normal pressure hydrocephalus (NPH) only in the appropriate clinical setting. No acute hydrocephalus. Extra-axial spaces: No masses, no fluid collection. Parenchyma: A few scattered hypodensities in the supratentorial white matter are nonspecific but most compatible with chronic microvascular ischemic changes. No mass, acute hemorrhage or acute or chronic cortical infarct. Sellar/suprasellar region: No abnormalities. Craniocervical junction: Patent foramen magnum. No Chiari one malformation. Included paranasal sinuses and nasal cavity: Persistent left ostiomeatal unit pattern of obstruction with opacified left frontal sinus, anterior ethmoids and left frontal sinus. Right maxillary sinus and sphenoid sinuses are partially opacified with mucosal thickening and fluid levels which could be correlated for acute on chronic sinusitis. Pneumatization otherwise improved in the remaining sinuses compared to the prior exam. Left nasal cavity partially opacified by soft tissue lesions which may reflect polyps. Findings could be correlated with direct visualization. Incidental findings: Lens replacements for previous cataract surgery Atherosclerotic calcifications in the carotid siphons and intradural vertebral arteries. IMPRESSION: No acute intracranial abnormalities. Persistent findings: 1. Mild chronic microvascular ischemic changes. 2. Generalized brain volume loss. 3. Nonspecific ventriculomegaly may be related to volume loss. Consider NPH only in the appropriate clinical setting. 4. Sinonasal inflammatory changes as described. Signed by: Dr. Cheng Dickerson M.D. on 10/12/2018 4:36 PM
[2018-10-12] MEDS ORDERED: FLUCONAZOLE 200 MG/100 ML 100 ML IV ONE (16:45)
--- NOTE | 2018-10-12 16:58 | NUR ---
35 cc urine post myers catheter placement
[2018-10-12] MEDS ORDERED: SODIUM CHLORIDE 0.9% 1000ML 1,000 ML IV ONE (17:00)
[2018-10-12 17:35] LABS: BASOPHILS % 0.2 % (0.0-1.0); EOSINOPHILS % 0.2 % (0.0-6.0); HEMOGLOBIN 10.6 g/dL (12.0-16.0); LYMPHOCYTES # (AUTO) 1.8 (1.0-3.2); LYMPHOCYTES % 45.4 % (18.0-39.1); MEAN CORPUSCULAR HEMOGLOBIN 30.7 pg (28-32); MEAN CORPUSCULAR HGB CONC 32.1 g/dL (31-35); MEAN CORPUSCULAR VOLUME 95.7 fL (81-99); MONOCYTES # (AUTO) 0.6 (0.2-0.8); NEUTROPHILS # (AUTO) 1.6 (2.1-6.9); NEUTROPHILS % 39.7 % (38.7-80.0); PLATELET COUNT 222 x10e3/uL (140-360); RED BLOOD COUNT 3.45 x10e6/uL (3.6-5.1); RED CELL DISTRIBUTION WIDTH 14.5 % (11.7-14.4)
[2018-10-12 17:54] LABS: AMORPHOUS SEDIMENT,URINE MODERATE (FEW); BACTERIA,URINE MANY /HPF; WBC,URINE (MAN) >50 /HPF (0-5)
[2018-10-12 17:54] LABS: INR 0.93
[2018-10-12 17:55] LABS: CLARITY,URINE TURBID (CLEAR); COLOR,URINE YELLOW (YELLOW); LEUKOCYTE ESTERASE ,URINE 1+ (NEGATIVE); NITRITE,URINE NEGATIVE (NEGATIVE)
[2018-10-12 17:55] LABS: PARTIAL THROMBOPLASTIN TIME 29.9 seconds (23.8-35.5)
[2018-10-12 17:56] LABS: BILIRUBIN,URINE NEGATIVE (NEGATIVE); KETONES,URINE NEGATIVE (NEGATIVE); PROTEIN,URINE DIPSTICK 2+ (NEGATIVE); URINE UROBILINOGEN 0.2 mg/dL (0.2 - 1)
[2018-10-12 18:02] LABS: ALBUMIN 2.7 g/dL (3.5-5.0); ALBUMIN/GLOBULIN RATIO 0.6 (0.8-2.0); ANION GAP 9.9 mmol/L (8-16); CALCIUM 8.6 mg/dL (8.4-10.2); CREATININE, SERUM 1.03 mg/dL (0.57-1.11); POTASSIUM 3.9 mmol/L (3.5-5.1)
[2018-10-12 18:09] LABS: CREATINE KINASE MB 1.7 ng/mL (0-5.0)
--- OUTSIDE RECORDS SUMMARY | 2018-10-12 18:44 | XMS REPORT | Clinical Summary ---
Author Author [facility] Organization [facility] Address Unknown Phone Unavailable Care Team Providers Care Biztalk Developer Name Role Phone Quan Ramos MD PCP [...] more information, beau portillo contact: Reggie Campos [address] [place] [address]
[2018-10-12] MEDS ORDERED: ONDANSETRON HCL INJ 2MG/ML 2ML 2 MG/ML VIAL IV PRN (18:45)
[2018-10-12] MEDS ORDERED: ACETAMINOPHEN 1000 MG/100 ML IV PRN (18:45)
[2018-10-12] MEDS ORDERED: DEXTROSE 50% SYRINGE 50 ML IV PRN (18:45)
[2018-10-12] MEDS ORDERED: SODIUM CHLORIDE FLUSH 10 ML SYR INJ PRN (18:45)
[2018-10-12] MEDS: SODIUM CHLORIDE 0.9% 1000ML 1,000 ML IV SCH (18:55)
[2018-10-12] MEDS: PIPER-TAZ 3.375 GM 50 ML IV SCH ×2 (18:55→22:00)
[2018-10-12] MEDS ORDERED: DOCUSATE SODIU100 MG PO (19:29)
[2018-10-12] MEDS ORDERED: MIDODRINE HCL2.5 MG PO (19:29)
[2018-10-12] MEDS ORDERED: CALCIUM CARBON500 MG PO (19:29)
[2018-10-12] MEDS ORDERED: METOPROLOL TART25 MG PO (19:29)
[2018-10-12] MEDS ORDERED: ZOFRAN4 MG PO (19:29)
[2018-10-12] MEDS ORDERED: LIDOCAINE PATCH 5% TOP (19:29)
[2018-10-12] MEDS ORDERED: ULTRAM 50MG50 MG PO (19:29)
[2018-10-12] MEDS ORDERED: CEFTAZIDIM1 GM/50 ML IV (19:29)
[2018-10-12] MEDS ORDERED: PANTOPRAZOLE SO40 MG PO (19:29)
[2018-10-12] MEDS ORDERED: HYDROMORPHONE HC2 MG PO (19:29)
[2018-10-12] MEDS ORDERED: OXYBUTYNIN CHLOR5 M1 PO (19:29)
[2018-10-12] MEDS ORDERED: NYSTATIN1 EAC2 TOP (19:29)
[2018-10-12] MEDS ORDERED: CEFTRIAXON1 GM/50 M1 IV (19:30)
--- NOTE | 2018-10-12 20:30 | NUR ---
received pt from er to room 210, son at bedside, AAOx1, resp even and unlabored, myers with yellow purulent urine in bag, 20g iv to left ac with NS @125, c/o of generalized chronic pain, MD called and orders received, bed in lowest and locked position, bed alarm on
[2018-10-12 20:38] VITALS: BP 105/53
[2018-10-12] MEDS ORDERED: TRAMADOL HCL 50 MG TAB PO PRN ×2 (20:45→21:00)
[2018-10-12 20:57] VITALS: BP 105/53
[2018-10-12] MEDS: TRAMADOL HCL 50 MG TAB PO PRN (22:00)
[2018-10-12 23:55] VITALS: BP 98/54
[2018-10-13] MEDS: SODIUM CHLORIDE 0.9% 1000ML 1,000 ML IV SCH ×3 (04:17→22:29)
[2018-10-13] MEDS: PIPER-TAZ 3.375 GM 50 ML IV SCH ×3 (05:14→21:45)
[2018-10-13 05:36] VITALS: BP 103/55
[2018-10-13 05:46] LABS: BASOPHILS % 0.2 % (0.0-1.0); EOSINOPHILS % 0.2 % (0.0-6.0); HEMATOCRIT 31.3 % (34.2-44.1); HEMOGLOBIN 9.9 g/dL (12.0-16.0); LYMPHOCYTES # (AUTO) 2.3 (1.0-3.2); MEAN CORPUSCULAR HEMOGLOBIN 30.7 pg (28-32); MEAN CORPUSCULAR HGB CONC 31.6 g/dL (31-35); MEAN CORPUSCULAR VOLUME 96.9 fL (81-99); MONOCYTES # (AUTO) 0.5 (0.2-0.8); MONOCYTES % 12.2 % (4.4-11.3); NEUTROPHILS # (AUTO) 1.3 (2.1-6.9); NEUTROPHILS % 31.9 % (38.7-80.0); PLATELET COUNT 189 x10e3/uL (140-360); RED BLOOD COUNT 3.23 x10e6/uL (3.6-5.1); RED CELL DISTRIBUTION WIDTH 14.6 % (11.7-14.4)
[2018-10-13 06:07] LABS: ALANINE AMINOTRANSFERASE 15 IU/L (0-55); ALBUMIN 2.3 g/dL (3.5-5.0); ALBUMIN/GLOBULIN RATIO 0.6 (0.8-2.0); ALKALINE PHOSPHATASE 89 IU/L (40-150); ANION GAP 9.1 mmol/L (8-16); BLOOD UREA NITROGEN 11 mg/dL (7-26); BUN/CREATININE RATIO 15 (6-25); CARBON DIOXIDE 27 mmol/L (22-29); CHLORIDE 106 mmol/L (98-107); CREATININE, SERUM 0.72 mg/dL (0.57-1.11); EST GLOMERULAR FILTRATION RATE > 60 ML/MIN (60-); GLUCOSE 111 mg/dL (74-118); PHOSPHORUS 3.3 MG/DL (2.3-4.7); POTASSIUM 4.1 mmol/L (3.5-5.1); SODIUM 138 mmol/L (136-145)
--- NOTE | 2018-10-13 07:36 | NUR ---
History and Physical cc: dehydration and fever HPI: 67yoF, PCP Dr.R. Brian, developed fever and weakness. Pt felt achy all over; no diarhea or vomiting; PMH: Mechanical fall with humerus fracture, hypothyroidism, MS/CAD s/p stent/CABG in 1999, hypertension, DM2, GERD, Hypothyroidism, mood d/o, chronic angina PAST SURGICAL HISTORY: CABG, coronary stent, right shoulder; FAMILY HISTORY: Hypertension and diabetes. SOCIAL HISTORY: no etoh/illicits; ; 3 children; MEDS: see MAR ROS; no cp/LEBLANC/vision changes/diarrhea/vomiting/neck pain/skin rash v/s: rev'd PE: tired appearing anicteric ns1s2 mod bs soft nt nd no e; DIFFUSE TENERNESS OF ARMS AND LEGS skin dry flat affect; alert and appropriate; asymmetric smile labs/med;s rev'd A/P: 67yoF Sepsis UTI JOSE likely due to ATN Hyponatremia N. anemia CAD with hx CABG Hypothyroidism GERD DM2 Mood d/o PLAN IVF; screen for Flu Hold lasix IV zosyn f/u cx Restart home meds Domenico Glass MD, PhD.
[2018-10-13] MEDS ORDERED: OYST-CAL-D 500MG TABLET PO PRN (07:45)
[2018-10-13 07:51] VITALS: BP 96/47
[2018-10-13 07:52] LABS: CHOL/HDL RATIO 2.6 (3.0-3.6)
[2018-10-13 08:10] VITALS: BP 96/47
--- NOTE | 2018-10-13 08:13 | NUR ---
aware of temp 100.3. No new orders
[2018-10-13] MEDS: INSULIN LISPRO 100 UNIT/1 ML 3ML VIAL SQ SCH ×3 (08:45→16:30)
[2018-10-13] MEDS ORDERED: MIDODRINE 2.5 MG TAB PO SCH (09:00)
[2018-10-13] MEDS ORDERED: NON-FORMULARY MEDICATION (Insulin Lispro (Humalog) 8 UNITS) SC SCH (09:00)
[2018-10-13] MEDS: FAMOTIDINE 20 MG/2 ML VIAL IV SCH ×2 (10:01→17:11)
[2018-10-13] MEDS: ESCITALOPRAM OXALATE 10 MG TAB PO SCH (10:01)
[2018-10-13] MEDS: DOCUSATE SODIUM 100 MG CAP PO SCH ×2 (10:01→17:11)
[2018-10-13] MEDS: CLOPIDOGREL BISULFATE 75 MG TAB PO SCH (10:01)
[2018-10-13] MEDS: LORATADINE 10 MG TAB PO SCH (10:01)
[2018-10-13] MEDS: ASPIRIN 81 MG CHEW TAB PO SCH (10:01)
[2018-10-13] MEDS: MIDODRINE HCL 5 MG TABLET PO SCH ×3 (10:01→17:11)
[2018-10-13] MEDS: RANOLAZINE 500 MG TABSR PO SCH ×2 (10:02→21:45)
[2018-10-13] MEDS: KETOCONAZOLE 2% CREAM/15 GM TUBE TOP SCH (10:02)
[2018-10-13] MEDS: MONTELUKAST SODIUM 10 MG TAB PO SCH (10:02)
[2018-10-13] MEDS: PANTOPRAZOLE SOD 40 MG TABEC PO SCH (10:02)
[2018-10-13] MEDS: LEVOTHYROXINE SODIUM 50 MCG TAB PO SCH (10:02)
--- NOTE | 2018-10-13 10:38 | NUR ---
paged to notify patient positive for Flu type A
[2018-10-13 12:00] VITALS: BP 109/47
[2018-10-13] MEDS: OSELTAMIVIR PHOSPHATE 75 MG CAP PO SCH ×2 (12:00→17:11)
[2018-10-13] MEDS: TRAMADOL HCL 50 MG TAB PO PRN ×2 (13:06→17:13)
--- NOTE | 2018-10-13 13:28 | NUR ---
CASE MANAGEMENT ASSESSMENT Tram Inspector to bedside to discuss plan of care with patient/family. CM/SW role and care transitions discussed. Anticipated discharge plan discussed along with duration of care. CM/SW discussed patients right to make decisions in care. CM/SW work hours given. Patient lives: with , son and his girlfriend Admit/Transfer: thru ED; came from [facility]/ER visits since last admit: none POA/Emergency contact: Benitez Black [phone] Current/Previous Home Health: none currently PCP/Follow-up Care: Dr. Tim Brian; CM advised pt to follow up with MD within 5 days of discharge. Pt's at bedside stated he will schedule an appointment once he knows when pt will discharge. Current/Previous DME: walker Medications (referring to index hospitalization or the first time you were in the hospital) a. Were changes made in your medications when you were in the hospital on [date of index hospitalization]? n/a b. Did you understand the changes? n/a c. Were you able to obtain your new medications right away? n/a d. Were you able to take your medications like the doctor wanted you to? n/a e. Did the hospital give you an accurate, easy to understand list of medications when you left? n/a Scale of 1-10 how comfortable does patient feel with disease management in outpatient settin Other Services: none Employment Status: unemployed Areas of Concerns: UTI, dehydration Referral Needs: may need to return to SNF vs home health Pt came from [facility] and stated she would go back if needed. She also stated that they were setting up home health for her in preparation for discharge with [facility]. Would like to use them if she goes home. Choice letter signed for [facility] and placed in chart. Copy left with pt's at bedside. Education Needs: medical management IMM/WOLF given and signed (if applicable): IMM letter delivered and explained. pt and her verbalized understanding. Signed copy in chart. Copy to pt's Goal for discharge: SNF vs home with home health. CM/SW left business card at the bedside with contact information. Name and number was also written on the patients whiteboard. Patient verbalized understanding of discussion. CM will follow-up with ongoing discharge and transition of care needs.
[2018-10-13 15:59] VITALS: BP 103/51
--- NOTE | 2018-10-13 19:11 | NUR ---
Report given to oncoming nurse. Resting in bed with eyes closed. Respirations even and unlabored. Bed alarm on, side rails upx2, call light within reach.
[2018-10-13 20:00] VITALS: BP 85/47
[2018-10-13] MEDS ORDERED: ATORVASTATIN 20 MG TAB PO SCH (21:00)
[2018-10-13] MEDS: ATORVASTATIN 40 MG TAB PO SCH (21:44)
[2018-10-14] VITALS (7 sets, daily range): BP systolic 93–133; BP diastolic 45–66
[2018-10-14] MEDS: LEVOTHYROXINE SODIUM 50 MCG TAB PO SCH (05:09)
[2018-10-14] MEDS: PIPER-TAZ 3.375 GM 50 ML IV SCH ×3 (05:09→22:53)
[2018-10-14] MEDS: INSULIN LISPRO 100 UNIT/1 ML 3ML VIAL SQ SCH ×3 (07:30→16:30)
[2018-10-14] MEDS: OSELTAMIVIR PHOSPHATE 75 MG CAP PO SCH ×2 (08:48→17:27)
[2018-10-14] MEDS: FAMOTIDINE 20 MG/2 ML VIAL IV SCH ×2 (08:48→17:27)
[2018-10-14] MEDS: ASPIRIN 81 MG CHEW TAB PO SCH (08:48)
[2018-10-14] MEDS: LORATADINE 10 MG TAB PO SCH (08:48)
[2018-10-14] MEDS: SODIUM CHLORIDE 0.9% 1000ML 1,000 ML IV SCH ×2 (08:48→22:52)
[2018-10-14] MEDS: ESCITALOPRAM OXALATE 10 MG TAB PO SCH (08:48)
[2018-10-14] MEDS: PANTOPRAZOLE SOD 40 MG TABEC PO SCH (08:48)
[2018-10-14] MEDS: MIDODRINE HCL 5 MG TABLET PO SCH ×3 (08:48→17:27)
[2018-10-14] MEDS: CLOPIDOGREL BISULFATE 75 MG TAB PO SCH (08:48)
[2018-10-14] MEDS: DOCUSATE SODIUM 100 MG CAP PO SCH ×2 (08:48→17:27)
[2018-10-14] MEDS: MONTELUKAST SODIUM 10 MG TAB PO SCH (08:48)
[2018-10-14] MEDS: KETOCONAZOLE 2% CREAM/15 GM TUBE TOP SCH (08:49)
[2018-10-14] MEDS: RANOLAZINE 500 MG TABSR PO SCH ×2 (10:00→22:52)
[2018-10-14] MEDS: TRAMADOL HCL 50 MG TAB PO PRN ×2 (10:00→17:28)
--- NOTE | 2018-10-14 10:54 | NUR ---
IM- progress note O/N; positive flu ROS; no cp/LEBLANC/vision changes/diarrhea/vomiting/neck pain/skin rash v/s: rev'd PE: tired appearing anicteric ns1s2 mod bs soft nt nd no e; DIFFUSE TENERNESS OF ARMS AND LEGS skin dry flat affect; alert and appropriate; asymmetric smile labs/med;s rev'd A/P: 67yoF Sepsis UTI JOSE likely due to ATN Hyponatremia N. anemia CAD with hx CABG Hypothyroidism GERD DM2 Mood d/o PLAN IVF; screen for Flu Hold lasix IV zosyn f/u cx Restart home meds 10/14 positive flu A- cont antibiotics; added tamiflu; droplet precautions; JOSE improving; Hba1c/LDL 6.5/41. Yeast in urine- treat. Domenico Glass MD, PhD.
[2018-10-14] MEDS: FLUCONAZOLE 100 MG/NS 50 ML 50 ML IV SCH (12:40)
--- NOTE | 2018-10-14 18:27 | Diagnostic Imaging Report ---
Radiographs of the right shoulder - 2 views HISTORY: Pain COMPARISON: None available. FINDINGS: Bones: No acute displaced fracture. Osseous alignment is within normal limits. Joints: Prior right shoulder replacement. The surgical hardware is intact without evidence of failure or loosening Soft tissues: The soft tissues appear unremarkable. IMPRESSION: Prior right shoulder replacement. The surgical hardware is intact without evidence of failure or loosening Signed by: Dr. Yvan Crump M.D. on 10/14/2018 6:23 PM
--- NOTE | 2018-10-14 19:05 | NUR ---
Report given to oncoming nurse of patient's status. Resting in bed. No s/s of acute distress noted. Call light within reach
--- NOTE | 2018-10-14 19:41 | NUR ---
CONSULTATION - ORTHOPEDICS Patient is a 67 yo F s/p Right Shoulder Reverse TSA (07/26/18) who is admitted for flu. Patient states her shoulder is feeling better and she is working on strengthening. Denies numbness, paresthesias or loss of distal motor function. PMdHx: Hypothyroidsim, CAD, Hypertension, GERD, DM Allergies: Erythromycin, Iodine IV, Phenytoin, Sulfa, Codeine SurHx: Right Reverse Total Shoulder Arthroplasty (07/26/18) FamHx: Non-contributory SocHx: No Drugs, Tob & EtoH VS T 98.4, HR 70, RR 18, BP 107/55, O2 96% NAD Right Shoulder - Incision healed well, no erythema or signs of infection Able to Abd 45 PROM FF 90, Abd 90, ER 0 Motor: + AIN, PIN, Radial, Median, Ulnar Sensation grossly intact Pulses + Radial, + capillary refill Compartments soft Right Shoulder Xray & Chest Xray demonstrate hardware intact, no gross fracture or dislocations noted 67 yo F s/p Right Reverse Total Shoulder Arthroplasty Analgesics PT - WBAT, Increase Deltoid Strength DVT Prophylaxis No acute Orthopedic intervention required at this time. Patient may follow up with me as outpatient in 4 weeks. DO [facility]
[2018-10-14] MEDS: ATORVASTATIN 40 MG TAB PO SCH (22:52)
[2018-10-15] VITALS (8 sets, daily range): BP systolic 111–122; BP diastolic 53–64
[2018-10-15] MEDS: PIPER-TAZ 3.375 GM 50 ML IV SCH ×3 (05:43→23:05)
--- NOTE | 2018-10-15 06:38 | NUR ---
PT RESTED DURING THE NIGHT AND DENIES PAIN .NO ACUTE DISTRESS NOTED .CALL LIGHT WITH IN REACH .CONTINUE TO MONITOR
[2018-10-15] MEDS: LEVOTHYROXINE SODIUM 50 MCG TAB PO SCH (06:52)
[2018-10-15] MEDS: SODIUM CHLORIDE 0.9% 1000ML 1,000 ML IV SCH ×4 (06:52→23:05)
--- NOTE | 2018-10-15 07:15 | NUR ---
BEDSIDE REPORT FROM NIGHT RN. PT DENIES NEEDS AT THIS TIME. LEFT AC IV ACCESS INFILTRATED AND ARM SWOLLEN. FLUIDS STOPPED, IV DC'D WITH TIP INTACT AND DRESSING PLACED. ARM ELEVATED WITH WARM PACK IN PLACE. WILL MONITOR.
[2018-10-15] MEDS: INSULIN LISPRO 100 UNIT/1 ML 3ML VIAL SQ SCH ×3 (07:30→16:30)
--- NOTE | 2018-10-15 07:35 | NUR ---
REPORT GIVEN TO ON COMING NURSE
[2018-10-15] MEDS: MIDODRINE HCL 5 MG TABLET PO SCH ×3 (09:40→18:07)
[2018-10-15] MEDS: PANTOPRAZOLE SOD 40 MG TABEC PO SCH (09:40)
[2018-10-15] MEDS: FAMOTIDINE 20 MG/2 ML VIAL IV SCH ×2 (09:40→17:00)
[2018-10-15] MEDS: OSELTAMIVIR PHOSPHATE 75 MG CAP PO SCH ×2 (09:41→18:07)
[2018-10-15] MEDS: RANOLAZINE 500 MG TABSR PO SCH ×2 (09:41→21:47)
[2018-10-15] MEDS: DOCUSATE SODIUM 100 MG CAP PO SCH ×2 (09:41→18:07)
[2018-10-15] MEDS: LORATADINE 10 MG TAB PO SCH (09:41)
[2018-10-15] MEDS: ASPIRIN 81 MG CHEW TAB PO SCH (09:41)
[2018-10-15] MEDS: CLOPIDOGREL BISULFATE 75 MG TAB PO SCH (09:41)
[2018-10-15] MEDS: KETOCONAZOLE 2% CREAM/15 GM TUBE TOP SCH (09:41)
[2018-10-15] MEDS: MONTELUKAST SODIUM 10 MG TAB PO SCH (09:41)
[2018-10-15] MEDS: ESCITALOPRAM OXALATE 10 MG TAB PO SCH (09:41)
--- NOTE | 2018-10-15 12:52 | NUR ---
FROM [facility]
[2018-10-15] MEDS: FLUCONAZOLE 100 MG/NS 50 ML 50 ML IV SCH (13:38)
--- NOTE | 2018-10-15 13:55 | NUR ---
PT HAS REFUSED TWICE TODAY TO WORK WITH PT.
--- NOTE | 2018-10-15 16:02 | NUR ---
THIS NURSE TRIED TWICE AND TIA RN, CHARGE NURSE HAS TRIED TO START A NEW IV WITHOUT SUCCESS. ER CALLED TO USE DOPPLER.
--- NOTE | 2018-10-15 16:26 | NUR ---
Wound Care - PUP SCREEN 67 y/o BS= 13 Moderate PUP Active Alternating Pressure Air Mattress in place and set according to patient weight. LOS= 2 days Patient refusing therapy, Refused to turn to evaluate sacrum, refused evaluation of rash on groin areas. Heel Protectors in Place. RECOMMENDATION: Continue Moderate PUP Protocol.Use Barrier Creams with Antifungal Component during walter-care. Patient has +Yeast urine culture. Likely has yeast related rash. Patient on Fluconazole IV. Addendum: 10/15/18 at 1631 by Ebenezer Roblero RN Amended: Links added.
--- NOTE | 2018-10-15 17:38 | NUR ---
IM- progress note O/N; positive flu ROS; no cp/LEBLANC/vision changes/diarrhea/vomiting/neck pain/skin rash v/s: rev'd PE: tired appearing anicteric ns1s2 mod bs soft nt nd no e; DIFFUSE TENERNESS OF ARMS AND LEGS skin dry flat affect; alert and appropriate; asymmetric smile labs/med;s rev'd A/P: 67yoF Sepsis UTI JOSE likely due to ATN Hyponatremia N. anemia CAD with hx CABG Hypothyroidism GERD DM2 Mood d/o PLAN IVF; screen for Flu Hold lasix IV zosyn f/u cx Restart home meds 10/14 positive flu A- cont antibiotics; added tamiflu; droplet precautions; JOSE improving; Hba1c/LDL 6.5/41. Yeast in urine- treat. 10/15 blood cultures negative; cont PT; d/c planning; back to snf Domenico Glass MD, PhD.
--- NOTE | 2018-10-15 18:30 | NUR ---
PT HAS HAD A LARGE BM. SON JOLLY. DEBORAH SERRANO IN PLACE.
[2018-10-15] MEDS: ATORVASTATIN 40 MG TAB PO SCH (21:45)
--- NOTE | 2018-10-15 21:45 | NUR ---
PICC nurse here for placement to [facility]
--- NOTE | 2018-10-15 22:32 | Diagnostic Imaging Report ---
Examination: Single AP view of the chest. COMPARISON: None. INDICATION: PICC line placement. DISCUSSION: Lines/tubes: Sternotomy wires. Left PICC line with tip over the SVC. Lungs: The lungs are well inflated and clear. There is no evidence of pneumonia or pulmonary edema. Pleura: There is no pleural effusion or pneumothorax. Heart and mediastinum: The heart and the mediastinum are unremarkable. Bones and soft tissues: No acute bony abnormalities. Right shoulder arthroplasty. IMPRESSION: 1. Left PICC line with tip over the low SVC Signed by: Dr. Avinash Figueroa M.D. on 10/15/2018 10:28 PM
[2018-10-16] VITALS (8 sets, daily range): BP systolic 95–118; BP diastolic 53–68
--- NOTE | 2018-10-16 02:00 | NUR ---
Noted saturated diaper with yellow urine only. Denies retention or pain. Patient requested to remove purewick. Purewick d/c at this time. New diaper in place.
--- NOTE | 2018-10-16 04:30 | NUR ---
Noted saturated diaper with yellow urine. Denies pain. New diaper placed at this time.
[2018-10-16] MEDS: PIPER-TAZ 3.375 GM 50 ML IV SCH ×3 (05:15→21:17)
[2018-10-16] MEDS: LEVOTHYROXINE SODIUM 50 MCG TAB PO SCH (05:15)
--- NOTE | 2018-10-16 07:00 | NUR ---
BEDSIDE REPORT FROM NIGHT RN. PT DENIES NEEDS AT THIS TIME.
[2018-10-16] MEDS: INSULIN LISPRO 100 UNIT/1 ML 3ML VIAL SQ SCH ×4 (07:30→18:08)
[2018-10-16] MEDS: PANTOPRAZOLE SOD 40 MG TABEC PO SCH (08:47)
[2018-10-16] MEDS: ASPIRIN 81 MG CHEW TAB PO SCH (08:48)
[2018-10-16] MEDS: MIDODRINE HCL 5 MG TABLET PO SCH ×3 (08:48→17:32)
[2018-10-16] MEDS: DOCUSATE SODIUM 100 MG CAP PO SCH ×2 (08:49→17:32)
[2018-10-16] MEDS: CLOPIDOGREL BISULFATE 75 MG TAB PO SCH (08:49)
[2018-10-16] MEDS: LORATADINE 10 MG TAB PO SCH (08:49)
[2018-10-16] MEDS: ESCITALOPRAM OXALATE 10 MG TAB PO SCH (08:49)
[2018-10-16] MEDS: OSELTAMIVIR PHOSPHATE 75 MG CAP PO SCH ×2 (08:51→17:32)
[2018-10-16] MEDS: MONTELUKAST SODIUM 10 MG TAB PO SCH (08:51)
[2018-10-16] MEDS: FAMOTIDINE 20 MG/2 ML VIAL IV SCH ×2 (08:59→17:30)
[2018-10-16] MEDS: KETOCONAZOLE 2% CREAM/15 GM TUBE TOP SCH (09:00)
[2018-10-16] MEDS: RANOLAZINE 500 MG TABSR PO SCH ×2 (09:22→20:33)
--- NOTE | 2018-10-16 09:52 | NUR ---
ALLEVYN PAD APPLIED TO PT'S SACRAL AND BUTTOCKS. SLIGHT RED BUT BLANCHING. NO BREAKDOWN.
[2018-10-16] MEDS ORDERED: TAMIFLU75 MG PO (10:13)
[2018-10-16] MEDS ORDERED: KEFLEX500 MG PO (10:15)
[2018-10-16] MEDS: SODIUM CHLORIDE 0.9% 1000ML 1,000 ML IV SCH ×2 (10:32→19:04)
--- NOTE | 2018-10-16 11:00 | NUR ---
PT AT BEDSIDE. MOVED PT TO THE CHAIR. PT TOLERATED WELL.
[2018-10-16] MEDS: TRAMADOL HCL 50 MG TAB PO PRN (11:20)
[2018-10-16] MEDS: FLUCONAZOLE 100 MG/NS 50 ML 50 ML IV SCH (12:55)
--- NOTE | 2018-10-16 18:30 | NUR ---
MOVED PT BACK TO BED. PT DENIED NEEDS AT THIS TIME. BED AT LOWEST POSITION. CALL SLAUGHTER WITH IN REACH.
--- NOTE | 2018-10-16 19:05 | NUR ---
BEDSIDE REPORT GIVEN TO ASSISTANT ASSOCIATE PROFESSOR RN.
[2018-10-16] MEDS: ATORVASTATIN 40 MG TAB PO SCH (21:17)
--- NOTE | 2018-10-16 23:40 | NUR ---
Noted yellow saturated diaper. Assisted with diaper change and repositioned patient comfortably. Call keith within reach.
[2018-10-17] VITALS (9 sets, daily range): BP systolic 95–120; BP diastolic 53–74
[2018-10-17] MEDS: SODIUM CHLORIDE 0.9% 1000ML 1,000 ML IV SCH ×3 (05:00→17:54)
[2018-10-17] MEDS: LEVOTHYROXINE SODIUM 50 MCG TAB PO SCH (05:33)
[2018-10-17] MEDS: PIPER-TAZ 3.375 GM 50 ML IV SCH ×3 (05:33→21:03)
--- NOTE | 2018-10-17 07:00 | NUR ---
BEDSIDE REPORT FROM NIGHT RN. PT DENIES NEEDS AT THIS TIME.
[2018-10-17] MEDS: INSULIN LISPRO 100 UNIT/1 ML 3ML VIAL SQ SCH ×3 (07:30→16:30)
[2018-10-17] MEDS: KETOCONAZOLE 2% CREAM/15 GM TUBE TOP SCH (09:00)
[2018-10-17] MEDS: MIDODRINE HCL 5 MG TABLET PO SCH ×3 (09:05→17:40)
[2018-10-17] MEDS: DOCUSATE SODIUM 100 MG CAP PO SCH ×2 (09:05→17:40)
[2018-10-17] MEDS: CLOPIDOGREL BISULFATE 75 MG TAB PO SCH (09:05)
[2018-10-17] MEDS: ESCITALOPRAM OXALATE 10 MG TAB PO SCH (09:05)
[2018-10-17] MEDS: FAMOTIDINE 20 MG/2 ML VIAL IV SCH ×2 (09:05→17:40)
[2018-10-17] MEDS: ASPIRIN 81 MG CHEW TAB PO SCH (09:05)
[2018-10-17] MEDS: PANTOPRAZOLE SOD 40 MG TABEC PO SCH (09:05)
[2018-10-17] MEDS: RANOLAZINE 500 MG TABSR PO SCH ×2 (09:06→20:31)
[2018-10-17] MEDS: LORATADINE 10 MG TAB PO SCH (09:06)
[2018-10-17] MEDS: MONTELUKAST SODIUM 10 MG TAB PO SCH (09:06)
[2018-10-17] MEDS: OSELTAMIVIR PHOSPHATE 75 MG CAP PO SCH ×2 (09:06→17:40)
[2018-10-17] MEDS: FLUCONAZOLE 100 MG/NS 50 ML 50 ML IV SCH (11:43)
--- NOTE | 2018-10-17 11:50 | NUR ---
TRIED TO GET PT TO TRANSFER TO CHAIR TO EAT LUNCH BUT PT EMPHATICALLY REFUSED TI SIT IN CHAIR AT BEDSIDE. SET PT UP IN BED AND PREPARED HER TRAY FOR LUNCH. PT REFUSING TO EAT. STATES THE KITCHEN CAN HAVE IT.
--- NOTE | 2018-10-17 16:14 | NUR ---
IM- progress note O/N; positive flu ROS; no cp/LEBLANC/vision changes/diarrhea/vomiting/neck pain/skin rash v/s: rev'd PE: tired appearing anicteric ns1s2 mod bs soft nt nd no e; DIFFUSE TENERNESS OF ARMS AND LEGS skin dry flat affect; alert and appropriate; asymmetric smile labs/med;s rev'd A/P: 67yoF Sepsis UTI JOSE likely due to ATN Hyponatremia N. anemia CAD with hx CABG Hypothyroidism GERD DM2 Mood d/o PLAN IVF; screen for Flu Hold lasix IV zosyn f/u cx Restart home meds 10/14 positive flu A- cont antibiotics; added tamiflu; droplet precautions; JOSE improving; Hba1c/LDL 6.5/41. Yeast in urine- treat. 10/15 blood cultures negative; cont PT; d/c planning; back to snf 10/16 SnF when bed available 10/17/18 Domenico Glass MD, PhD.
[2018-10-17] MEDS: ATORVASTATIN 40 MG TAB PO SCH (20:30)
[2018-10-18 00:01] VITALS: BP 111/59
[2018-10-18] MEDS: SODIUM CHLORIDE 0.9% 1000ML 1,000 ML IV SCH ×3 (02:32→18:32)
[2018-10-18] MEDS: PIPER-TAZ 3.375 GM 50 ML IV SCH ×2 (05:24→14:33)
[2018-10-18] MEDS: LEVOTHYROXINE SODIUM 50 MCG TAB PO SCH (05:25)
[2018-10-18 05:31] VITALS: BP 100/61
--- NOTE | 2018-10-18 07:28 | NUR ---
IM- progress note O/N; positive flu ROS; no cp/LEBLANC/vision changes/diarrhea/vomiting/neck pain/skin rash v/s: rev'd PE: tired appearing anicteric ns1s2 mod bs soft nt nd no e; DIFFUSE TENERNESS OF ARMS AND LEGS skin dry flat affect; alert and appropriate; asymmetric smile labs/med;s rev'd A/P: 67yoF Sepsis UTI JOSE likely due to ATN Hyponatremia N. anemia CAD with hx CABG Hypothyroidism GERD DM2 Mood d/o PLAN IVF; screen for Flu Hold lasix IV zosyn f/u cx Restart home meds 10/14 positive flu A- cont antibiotics; added tamiflu; droplet precautions; JOSE improving; Hba1c/LDL 6.5/41. Yeast in urine- treat. 10/15 blood cultures negative; cont PT; d/c planning; back to snf 10/16 SnF when bed available 10/17/18 doing well 10/18 check labs; d/c planning Domenico Glass MD, PhD.
[2018-10-18] MEDS: PANTOPRAZOLE SOD 40 MG TABEC PO SCH (07:30)
[2018-10-18 07:57] VITALS: BP 97/52
[2018-10-18] MEDS: MIDODRINE HCL 5 MG TABLET PO SCH ×3 (07:58→17:23)
[2018-10-18] MEDS: INSULIN LISPRO 100 UNIT/1 ML 3ML VIAL SQ SCH ×3 (07:58→16:30)
[2018-10-18 08:41] LABS: BASOPHILS % 0.2 % (0.0-1.0); EOSINOPHILS # (AUTO) 0.1 (0.0-0.4); HEMATOCRIT 29.3 % (34.2-44.1); HEMOGLOBIN 9.7 g/dL (12.0-16.0); LYMPHOCYTES # (AUTO) 2.4 (1.0-3.2); LYMPHOCYTES % 55.9 % (18.0-39.1); MEAN CORPUSCULAR HEMOGLOBIN 30.8 pg (28-32); MEAN CORPUSCULAR HGB CONC 33.1 g/dL (31-35); MONOCYTES # (AUTO) 0.3 (0.2-0.8); MONOCYTES % 7.4 % (4.4-11.3); NEUTROPHILS # (AUTO) 1.4 (2.1-6.9); NEUTROPHILS % 33.3 % (38.7-80.0); PLATELET COUNT 189 x10e3/uL (140-360); RED BLOOD COUNT 3.15 x10e6/uL (3.6-5.1); RED CELL DISTRIBUTION WIDTH 13.9 % (11.7-14.4)
[2018-10-18 08:57] LABS: ANION GAP 8.2 mmol/L (8-16); BLOOD UREA NITROGEN < 5 mg/dL (7-26); CALCIUM 8.1 mg/dL (8.4-10.2); CARBON DIOXIDE 25 mmol/L (22-29); CHLORIDE 112 mmol/L (98-107); CREATININE, SERUM 0.64 mg/dL (0.57-1.11); EST GLOMERULAR FILTRATION RATE > 60 ML/MIN (60-); GLUCOSE 102 mg/dL (74-118); MAGNESIUM 2.2 MG/DL (1.3-2.1); POTASSIUM 3.2 mmol/L (3.5-5.1); SODIUM 142 mmol/L (136-145)
[2018-10-18 08:59] LABS: BUN/CREATININE RATIO 8 (6-25)
--- NOTE | 2018-10-18 09:17 | NUR ---
The pt. declined to take her med pass for the second time this morning and SHe stated "I am not ready to take them now".
[2018-10-18] MEDS ORDERED: ONDANSETRON HCL 4 MG ORAL DISINTEGRATING TAB PO PRN (09:45)
[2018-10-18 10:50] VITALS: BP 97/50
[2018-10-18] MEDS: LORATADINE 10 MG TAB PO SCH (11:09)
[2018-10-18] MEDS: CLOPIDOGREL BISULFATE 75 MG TAB PO SCH (11:09)
[2018-10-18] MEDS: ESCITALOPRAM OXALATE 10 MG TAB PO SCH (11:09)
[2018-10-18] MEDS: ASPIRIN 81 MG CHEW TAB PO SCH (11:09)
[2018-10-18] MEDS: FAMOTIDINE 20 MG/2 ML VIAL IV SCH (11:09)
[2018-10-18] MEDS: DOCUSATE SODIUM 100 MG CAP PO SCH ×2 (11:09→17:23)
[2018-10-18] MEDS: KETOCONAZOLE 2% CREAM/15 GM TUBE TOP SCH (11:10)
[2018-10-18] MEDS: OSELTAMIVIR PHOSPHATE 75 MG CAP PO SCH (11:10)
[2018-10-18] MEDS: MONTELUKAST SODIUM 10 MG TAB PO SCH (11:10)
[2018-10-18] MEDS: RANOLAZINE 500 MG TABSR PO SCH (11:10)
--- NOTE | 2018-10-18 11:17 | NUR ---
The PCT called to report blood glucose of 44 and the pt. was given 1 amp d50w. Will recheck bloos glucose.
[2018-10-18 12:10] VITALS: BP 109/53
[2018-10-18] MEDS: FLUCONAZOLE 100 MG/NS 50 ML 50 ML IV SCH (12:20)
--- NOTE | 2018-10-18 12:21 | NUR ---
The midorine was not given at this time due to the pt. receiving morning dose at 1130.
--- NOTE | 2018-10-18 13:02 | NUR ---
Spoke with Nelly with admissions from [facility]. Informed her that pt is ready to discharge once bed is available. 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 Nelly stated that she should be able to get pt a bed today.
--- NOTE | 2018-10-18 13:16 | NUR ---
IMM letter delivered and explained to pt. She verbalized understanding, stated that she is ready to go back to [facility]. Signed copy placed in chart. Copy placed in pt's transition of care folder. CM also called and updated pt's Benitez Black [phone] on discharge plan.
--- NOTE | 2018-10-18 16:02 | NUR ---
Received MOT from Nelly at [facility] [address] [place] [id number] Lopez to attend Admin: Felix Murphy Completed RTF placed at nurses station and RANJIT Ruiz was notified. Left message for pt's with callback number
[2018-10-18 16:22] VITALS: BP 116/62
[2018-10-18] MEDS ORDERED: FAMOTIDINE 20 MG TAB PO SCH (16:30)
--- NOTE | 2018-10-18 16:50 | NUR ---
Okay to transfer the pt. to [facility] received and a call was placed to the facility and this senior medical writer was placed on hold for 8 minutes. I hung p and attempted to recall and was immediately placed back on hold without speaking to anyone. I called again from another phone and no answer at all.
--- NOTE | 2018-10-18 17:28 | NUR ---
I called again to give report and spoke with Miguel who again placed the call on hold for 3 minutes. He returned to the call and reported that the nurse is with another and took the call back number and still no return call.
--- NOTE | 2018-10-18 18:40 | NUR ---
Report to [facility] at this time.
--- NOTE | 2018-10-18 20:04 | NUR ---
Patient transported to [facility] via EMS. Vital signs WNL. materials director taken off patient. Patient is in stable condition.
== END 2018-10-18 19:58 | DRG 871 ==
LOC: ER 15:04 → ERHOLD 18:42 → MED/SURG2 20:26
PROVIDERS: ADMIT Internal Medicine; ATTEND Internal Medicine
PROC: 02HV33Z Insertion of Infusion Device into Superior Vena Cava, Percutaneous Approach (ICD-10-PCS; principal; 2018-10-15)
DX: A41.9 Sepsis, unspecified organism (principal); N17.0 Acute kidney failure with tubular necrosis; N39.0 Urinary tract infection, site not specified; E87.1 Hypo-osmolality and hyponatremia; E86.0 Dehydration; B37.3 Candidiasis of vulva and vagina; J09.X2 Influenza due to identified novel influenza A virus with other respiratory manifestations
CPT/HCPCS: 36415; 36569; 51700; 70450; 71045; 74470; 80048; 80053; 80061; 81001; 82550; 82553; 82948; 83036; 83605; 83735; 83880; 84100; 84484; 85025; 85610; 85730; 87040; 87086; 87400; 93005; 97139; 99284; J1450; J2543; J7030; J7799